=== PATIENT | male | born 1970 | race African-American/Black ===

== ENCOUNTER 2017-06-24 12:29 | Inpatient (IN) | payer OTHER ==
[2017-06-24 13:48] VITALS: BMI 35.2
[2017-06-24] MEDS ORDERED: IBUPROFEN 400 MG TABLET (FP) PO PRN (17:54)
[2017-06-24] MEDS ORDERED: NICOTINE POLACRILEX 2 MG GUM BC PRN (17:54)
[2017-06-24] MEDS ORDERED: MENTHOL/PHENOL 1 EACH UD MM PRN (17:54)
[2017-06-24] MEDS ORDERED: P-EPHED 60MG/TRIPROLIDI 2.5MG TABLET PO PRN (17:54)
[2017-06-24] MEDS ORDERED: chlordiazePOXIDE HCL 25 MG CAPSULE PO PRN (17:54)
[2017-06-24] MEDS ORDERED: hydrOXYzine PAMOATE 50 MG CAPSULE (FP) PO PRN (17:54)
[2017-06-24] MEDS ORDERED: MAG HYDROX/AL HYDROX/SIMETH 30 ML UNIT-DOSE CUP PO PRN (17:54)
[2017-06-24] MEDS ORDERED: MAGNESIUM HYDROX 2400MG/30ML ORAL SUSPENSION 30 ML CUP PO PRN (17:54)
[2017-06-24] MEDS ORDERED: LOPERAMIDE HCL 2 MG CAPSULE PO PRN (17:54)
[2017-06-24] MEDS ORDERED: guaiFENesin/D-METHORPHAN HB 10 ML UNIT-DOSE CUPS PO PRN (17:54)
[2017-06-24] MEDS ORDERED: MAGNESIUM CITRATE 300 ML BOTTLE PO PRN (17:54)
[2017-06-24] MEDS ORDERED: ACETAMINOPHEN 325 MG TABLET (FP) PO PRN (17:54)
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
[2017-06-24] MEDS ORDERED: chlordiazePOXIDE HCL 25 MG CAPSULE PO ONE (19:45)
[2017-06-24] MEDS: NICOTINE 14 MG/24 HOURS TOPICAL PATCH TD SCH (20:05)
[2017-06-24] MEDS: THIAMINE HCL 100 MG TABLET (FP) PO SCH (23:04)
[2017-06-24] MEDS: chlordiazePOXIDE HCL 25 MG CAPSULE PO SCH (23:05)
[2017-06-25] MEDS: chlordiazePOXIDE HCL 25 MG CAPSULE PO SCH ×4 (06:04→22:25)
[2017-06-25 09:58] LABS: MCHC 32.7 g/dl (32.0-35.9); MEAN CELL VOLUME 91.8 fl (80-96); MEAN PLT VOLUME 8.1 fl (7.5-11.1); PLATELET COUNT 255 K/MM3 (134-434); RDW 14.7 % (11.9-15.9); WHITE BLOOD COUNT 8.9 K/mm3 (4.0-10.0)
[2017-06-25 10:17] LABS: ALK PHOS 75 U/L (45-117); ANION GAP 7 (8-16); BILIRUBIN,TOTAL 0.2 mg/dL (0.2-1.0); CALCIUM 8.1 mg/dL (8.5-10.1); CO2 27 mmol/L (21-32); CREATININE 1.2 mg/dL (0.7-1.3); GLUCOSE,RANDOM 82 mg/dL (74-106); SGOT/AST 14 U/L (15-37); SGPT/ALT 34 U/L (12-78); TOT PROT 6.4 g/dl (6.4-8.2)
[2017-06-25] MEDS: NICOTINE 14 MG/24 HOURS TOPICAL PATCH TD SCH (10:42)
[2017-06-25] MEDS: PRENATAL VITAMINS W/ FOLIC ACID TABLET (FP) PO SCH (10:42)
[2017-06-25 12:46] LABS: HIV 1 & 2 AB NEGATIVE; HIV 1 AGp24 NEGATIVE
--- NOTE | 2017-06-25 12:56 | PN ---
[facility] CIWA - CIWA Score Nausea/Vomitin-No Nausea/No Vomiting Muscle Tremors: 3 Anxiety: 3 Agitation: 1-Slight > Activity Paroxysmal Sweats: 3 Orientation: 0-Oriented Tacttile Disturbances: 2-Mild Itch/Numbness/Burn Auditory Disturbances: 2-Mild Harshness/Frighten Visual Disturbances: 2-Mild Sensitivity Headache: 0-None Present CIWA-Ar Total Score: 16 S Progress Note (SOAP) Subjective: Fatigue, Tremors, Sweating, Anxious. Objective: PT. A & O X 3, OBSERVED AMBULATING ON UNIT. NO ACUTE DISTRESS. 06/25/17 12:54 Vital Signs Temperature 97.7 F 06/25/17 09:19 Pulse Rate 78 06/25/17 09:19 Respiratory Rate 18 06/25/17 09:19 Blood Pressure 122/78 06/25/17 09:19 O2 Sat by Pulse Oximetry (%) Laboratory Tests 06/25/17 06/25/17 06/25/17 07:00 07:00 07:00 WBC 8.9 RBC 4.64 Hgb 13.9 Hct 42.6 MCV 91.8 MCH 30.0 MCHC 32.7 RDW 14.7 Plt Count 255 D MPV 8.1 Sodium 142 Potassium 4.2 Chloride 108 H Carbon Dioxide 27 Anion Gap 7 L BUN 20 H D Creatinine 1.2 D Creat Clearance w eGFR > 60 Random Glucose 82 Calcium 8.1 L Total Bilirubin 0.2 D AST 14 L D ALT 34 Alkaline Phosphatase 75 D Total Protein 6.4 Albumin 3.0 L D HIV 1&2 Antibody Screen Negative HIV P24 Antigen Negative LABS NOTED. RPR, UA RESULTS PENDING. 06/25/17 12:56 Assessment: 06/25/17 12:55 WITHDRAWAL SYMPTOMS. Plan: CONTINUE DETOX.
--- NOTE | 2017-06-25 13:00 | CONSULT ---
[facility] Psychiatric Consult - Data Date of interview: 06/25/17 Admission source: [facility] Identifying data: Readmission to [facility] for this 46 y/o AA male seeking detox treatment on for alcohol,cocaine (crack) and phencyclidine dependence.Patient is single,a father of three,homeless,unemployed and supported on SSI benefits. Substance Abuse History: Confirmed by patient in this session.See current [facility] report for details : Smoking history: Current every day smoker. Have you smoked in the past 12 months: Yes. Aproximately how many cigarettes per day: 4. Hx Chewing Tobacco Use: No. Initiated information on smoking cessation: Yes. 'Breaking Loose' booklet given: 06/24/17. - Substance & Tx. History. Hx Alcohol Use: Yes. Hx Substance Use: Yes. Substance Use Type: Alcohol, Cocaine. Hx Substance Use Treatment: Yes ([facility] in past). - Substances Abused. Alcohol. Route: Oral. Frequency: Daily. Amount used: 6 24 oz beers. Age of first use: 14. Date of Last Use: 06/23/17. Crack. Route: Smoking. Frequency: Daily. Amount used: $150. Age of first use: 17. Date of Last Use: 06/23/17. PCP. Route: Smoking. Frequency: 1-3 times last 30 days. Amount used: 1 joint. Age of first use: 46. Date of Last Use: 06/23/17 Medical History: Patient endorses good general health. Psychiatric History: Diagnosed with Schizoaffective Disorder.Prescribed zyprexa 10 mg/hs + zoloft 100 mg/day + vistaril 50 mg prn.Last taken two days ago (self- report).Mr Smith admits to a history of multiple psychiatric hospializaions ([facility]).He gets his OPD services at [facility] mental health clinic.Patient denies history of suicide attempts. Physical/Sexual Abuse/Trauma History: No reported history of abuse. Additional Comment: Urine Drug Screen Results: DAWN-Cocaine, PCP- Phencyclidine.Noted. Mental Status Exam - Mental Status Exam Alert and Oriented to: Time, Place, Person Cognitive Function: Good Patient Appearance: Well Groomed (obese) Mood: Hopeful, Euthymic Affect: Appropriate, Normal Range Patient Behavior: Appropriate, Cooperative Speech Pattern: Clear, Appropriate Voice Loudness: Normal Thought Process: Goal Oriented Thought Disorder: Not Present Hallucinations: Denies Suicidal Ideation: Denies Homicidal Ideation: Denies Insight/Judgement: Poor Sleep: Well Appetite: Good Muscle strength/Tone: Normal Gait/Station: Normal Psychiatric Findings - Problem List ([place] 1, 2,3) (1) Alcohol dependence with uncomplicated withdrawal Current Visit: Yes Status: Acute (2) Cocaine dependence Current Visit: Yes Status: Active (3) Phencyclidine dependence Current Visit: Yes Status: Acute (4) Schizoaffective disorder Current Visit: Yes Status: Chronic - Initial Treatment Plan Initial Treatment Plan: Psychoeducation.Detoxification in progress.Medications : zyprexa 10 mg po hs + oloft 100 mg po daily.Side effects/benefits of both drugs are discussed with the patient.He agrees to resume these medications in this hospital course.Observation.
[2017-06-25 13:29] LABS: URINE APPEARANCE SLCLOUDY; URINE BILIRUBIN NEGATIVE (NEGATIVE); URINE BLOOD NEGATIVE (NEGATIVE); URINE COLOR YELLOW; URINE GLUCOSE (UA) NEGATIVE (NEGATIVE); URINE KETONE NEGATIVE (NEGATIVE); URINE NITRITE NEGATIVE (NEGATIVE); URINE PROTEIN NEGATIVE (NEGATIVE); URINE UROBILINOGEN NEGATIVE mg/dL (0.2-1.0)
[2017-06-25 13:31] LABS: URINE LEUK ESTERASE 2+ (NEGATIVE)
[2017-06-25 13:35] LABS: URINE HYALINE CAST 4 /lpf; URINE MUCUS RARE; URINE RBC 1 /hpf (0-3); URINE WBC 13 /hpf (3-5)
--- NOTE | 2017-06-25 14:30 | EKG ---
Test Reason : Blood Pressure : / mmHG Vent. Rate : 069 BPM Atrial Rate : 069 BPM P-R Int : 154 ms QRS Dur : 086 ms QT Int : 402 ms P-R-T Axes : 073 070 052 degrees QTc Int : 430 ms NORMAL SINUS RHYTHM POSSIBLE LEFT ATRIAL ENLARGEMENT BORDERLINE ECG NO PREVIOUS ECGS AVAILABLE Confirmed by HALLIE IGLESIAS MD ([id number]) on 06/25/2017 2:30:26 PM Referred By: Confirmed By:HALLIE IGLESIAS MD
[2017-06-25 22:01] LABS: URINE LEUK ESTERASE TRACE (NEGATIVE)
[2017-06-25] MEDS: OLANZapine 10 MG TABLET PO SCH (22:25)
[2017-06-25] MEDS: THIAMINE HCL 100 MG TABLET (FP) PO SCH (22:25)
[2017-06-26] MEDS: chlordiazePOXIDE HCL 25 MG CAPSULE PO SCH ×3 (06:06→17:28)
[2017-06-26] MEDS: NICOTINE 14 MG/24 HOURS TOPICAL PATCH TD SCH (10:51)
[2017-06-26] MEDS: SERTRALINE HCL 50 MG TABLET (FP) PO SCH (10:51)
[2017-06-26] MEDS: PRENATAL VITAMINS W/ FOLIC ACID TABLET (FP) PO SCH (10:51)
--- NOTE | 2017-06-26 12:59 | PN ---
[facility] CIWA - CIWA Score Nausea/Vomitin-No Nausea/No Vomiting Muscle Tremors: 3 Anxiety: 4-Mod. Anxious/Guarded Agitation: 3 Paroxysmal Sweats: 3 Orientation: 0-Oriented Tacttile Disturbances: 2-Mild Itch/Numbness/Burn Auditory Disturbances: 1-Very Mild Visual Disturbances: 1-Very Mild Sensitivity Headache: 0-None Present CIWA-Ar Total Score: 17 S Progress Note (SOAP) Subjective: Anxious, Fatigue, Sweating. Objective: PT. A & O X 3, OBSERVED AMBULATING ON UNIT. NO ACUTE DISTRESS. 06/26/17 12:55 Vital Signs Temperature 97.7 F 06/26/17 09:54 Pulse Rate 75 06/26/17 09:54 Respiratory Rate 18 06/26/17 09:54 Blood Pressure 133/69 06/26/17 09:54 O2 Sat by Pulse Oximetry (%) Laboratory Tests 06/24/17 06/25/17 06/25/17 11:46 07:00 07:00 WBC 8.9 RBC 4.64 Hgb 13.9 Hct 42.6 MCV 91.8 MCH 30.0 MCHC 32.7 RDW 14.7 Plt Count 255 D MPV 8.1 Sodium Potassium Chloride Carbon Dioxide Anion Gap BUN Creatinine Creat Clearance w eGFR Random Glucose Calcium Total Bilirubin AST ALT Alkaline Phosphatase Total Protein Albumin Urine Color Yellow Urine Appearance Slcloudy Urine pH 5.0 Ur Specific [place] 1.024 Urine Protein Negative Urine Glucose (UA) Negative Urine Ketones Negative Urine Blood Negative Urine Nitrite Negative Urine Bilirubin Negative Urine Urobilinogen Negative Ur Leukocyte Esterase Trace H Urine WBC (Auto) 13 Urine RBC (Auto) 1 Ur Epithelial Cells Rare Hyaline Casts 4 Urine Mucus Rare RPR Titer HIV 1&2 Antibody Screen Negative HIV P24 Antigen Negative 06/25/17 06/25/17 07:00 07:00 WBC RBC Hgb Hct MCV MCH MCHC RDW Plt Count MPV Sodium 142 Potassium 4.2 Chloride 108 H Carbon Dioxide 27 Anion Gap 7 L BUN 20 H D Creatinine 1.2 D Creat Clearance w eGFR > 60 Random Glucose 82 Calcium 8.1 L Total Bilirubin 0.2 D AST 14 L D ALT 34 Alkaline Phosphatase 75 D Total Protein 6.4 Albumin 3.0 L D Urine Color Urine Appearance Urine pH Ur Specific [place] Urine Protein Urine Glucose (UA) Urine Ketones Urine Blood Urine Nitrite Urine Bilirubin Urine Urobilinogen Ur Leukocyte Esterase Urine WBC (Auto) Urine RBC (Auto) Ur Epithelial Cells Hyaline Casts Urine Mucus RPR Titer Nonreactive HIV 1&2 Antibody Screen HIV P24 Antigen LABS NOTED. Assessment: 06/26/17 12:56 WITHDRAWAL SYMPTOMS. Plan: CONTINUE DETOX. REPEAT UA FOR ADMISSION ABNORMALITIES. INCREASE DAILY PO FLUID INTAKE.
[2017-06-26] MEDS: THIAMINE HCL 100 MG TABLET (FP) PO SCH (22:29)
[2017-06-26] MEDS: chlordiazePOXIDE 5 MG CAPSULE PO SCH (22:29)
[2017-06-26] MEDS: OLANZapine 10 MG TABLET PO SCH (22:29)
[2017-06-27] MEDS: chlordiazePOXIDE 5 MG CAPSULE PO SCH ×3 (06:22→17:28)
[2017-06-27] MEDS: SERTRALINE HCL 50 MG TABLET (FP) PO SCH (09:38)
[2017-06-27] MEDS: NICOTINE 14 MG/24 HOURS TOPICAL PATCH TD SCH (09:38)
[2017-06-27] MEDS: PRENATAL VITAMINS W/ FOLIC ACID TABLET (FP) PO SCH (09:38)
[2017-06-27] MEDS ORDERED: COLLOIDAL OATMEAL 1 BAR EACH TP PRN (12:28)
--- NOTE | 2017-06-27 12:33 | PN ---
BHS Progress Note (SOAP) Subjective: Anxious, Sweating. Objective: PT. A & O X 3, OBSERVED AMBULATING ON UNIT. NO ACUTE DISTRESS. 06/27/17 12:30 Vital Signs Temperature 97.2 F L 06/27/17 09:44 Pulse Rate 71 06/27/17 09:44 Respiratory Rate 18 06/27/17 09:44 Blood Pressure 132/74 06/27/17 09:44 O2 Sat by Pulse Oximetry (%) Laboratory Tests 06/24/17 06/25/17 06/25/17 11:46 07:00 07:00 WBC 8.9 RBC 4.64 Hgb 13.9 Hct 42.6 MCV 91.8 MCH 30.0 MCHC 32.7 RDW 14.7 Plt Count 255 D MPV 8.1 Sodium Potassium Chloride Carbon Dioxide Anion Gap BUN Creatinine Creat Clearance w eGFR Random Glucose Calcium Total Bilirubin AST ALT Alkaline Phosphatase Total Protein Albumin Urine Color Yellow Urine Appearance Slcloudy Urine pH 5.0 Ur Specific [place] 1.024 Urine Protein Negative Urine Glucose (UA) Negative Urine Ketones Negative Urine Blood Negative Urine Nitrite Negative Urine Bilirubin Negative Urine Urobilinogen Negative Ur Leukocyte Esterase Trace H Urine WBC (Auto) 13 Urine RBC (Auto) 1 Ur Epithelial Cells Rare Hyaline Casts 4 Urine Mucus Rare RPR Titer HIV 1&2 Antibody Screen Negative HIV P24 Antigen Negative 06/25/17 06/25/17 07:00 07:00 WBC RBC Hgb Hct MCV MCH MCHC RDW Plt Count MPV Sodium 142 Potassium 4.2 Chloride 108 H Carbon Dioxide 27 Anion Gap 7 L BUN 20 H D Creatinine 1.2 D Creat Clearance w eGFR > 60 Random Glucose 82 Calcium 8.1 L Total Bilirubin 0.2 D AST 14 L D ALT 34 Alkaline Phosphatase 75 D Total Protein 6.4 Albumin 3.0 L D Urine Color Urine Appearance Urine pH Ur Specific [place] Urine Protein Urine Glucose (UA) Urine Ketones Urine Blood Urine Nitrite Urine Bilirubin Urine Urobilinogen Ur Leukocyte Esterase Urine WBC (Auto) Urine RBC (Auto) Ur Epithelial Cells Hyaline Casts Urine Mucus RPR Titer Nonreactive HIV 1&2 Antibody Screen HIV P24 Antigen LABS NOTED. Assessment: 06/27/17 12:32 WITHDRAWAL SYMPTOMS. Plan: CONTINUE DETOX.
[2017-06-27 17:40] VITALS: BP 119/76; PULSE 81; TEMP 97.4
--- NOTE | 2017-06-27 22:02 | DS ---
[facility] Detox Discharge Summary Admission Date: 06/24/17 Discharge Date: 06/27/17 - History Present History: Alcohol Dependence Additional Comments: 46 years old male came for alcohol pcp cocaine detox received nurse call patient insists to leave the facility refuses to wait face to face with the provider patient left the unit Pertinent Past History: schizophrenia - Physical Exam Results Vital Signs: Vital Signs Temperature 97.4 F L 06/27/17 17:39 Pulse Rate 81 06/27/17 17:39 Respiratory Rate 18 06/27/17 17:39 Blood Pressure 119/76 06/27/17 17:39 O2 Sat by Pulse Oximetry (%) Pertinent Admission Physical Exam Findings: withdrawal sx Laboratory Last Values WBC 8.9 K/mm3 (4.0-10.0) 06/25/17 07:00 RBC 4.64 M/mm3 (4.00-5.60) 06/25/17 07:00 Hgb 13.9 GM/dL (11.7-16.9) 06/25/17 07:00 Hct 42.6 % (35.4-49) 06/25/17 07:00 MCV 91.8 fl (80-96) 06/25/17 07:00 MCH 30.0 pg (25.7-33.7) 06/25/17 07:00 MCHC 32.7 g/dl (32.0-35.9) 06/25/17 07:00 RDW 14.7 % (11.9-15.9) 06/25/17 07:00 Plt Count 255 K/MM3 (134-434) D 06/25/17 07:00 MPV 8.1 fl (7.5-11.1) 06/25/17 07:00 Sodium 142 mmol/L (136-145) 06/25/17 07:00 Potassium 4.2 mmol/L (3.5-5.1) 06/25/17 07:00 Chloride 108 mmol/L (98-107) H 06/25/17 07:00 Carbon Dioxide 27 mmol/L (21-32) 06/25/17 07:00 Anion Gap 7 (8-16) L 06/25/17 07:00 BUN 20 mg/dL (7-18) H D 06/25/17 07:00 Creatinine 1.2 mg/dL (0.7-1.3) D 06/25/17 07:00 Creat Clearance w eGFR > 60 (>60) 06/25/17 07:00 Random Glucose 82 mg/dL (74-106) 06/25/17 07:00 Calcium 8.1 mg/dL (8.5-10.1) L 06/25/17 07:00 Total Bilirubin 0.2 mg/dL (0.2-1.0) D 06/25/17 07:00 AST 14 U/L (15-37) L D 06/25/17 07:00 ALT 34 U/L (12-78) 06/25/17 07:00 Alkaline Phosphatase 75 U/L (45-117) D 06/25/17 07:00 Total Protein 6.4 g/dl (6.4-8.2) 06/25/17 07:00 Albumin 3.0 g/dl (3.4-5.0) L D 06/25/17 07:00 Urine Color Yellow 06/24/17 11:46 Urine Appearance Slcloudy 06/24/17 11:46 Urine pH 5.0 (5.0-8.0) 06/24/17 11:46 Ur Specific [place] 1.024 (1.001-1.035) 06/24/17 11:46 Urine Protein Negative (NEGATIVE) 06/24/17 11:46 Urine Glucose (UA) Negative (NEGATIVE) 06/24/17 11:46 Urine Ketones Negative (NEGATIVE) 06/24/17 11:46 Urine Blood Negative (NEGATIVE) 06/24/17 11:46 Urine Nitrite Negative (NEGATIVE) 06/24/17 11:46 Urine Bilirubin Negative (NEGATIVE) 06/24/17 11:46 Urine Urobilinogen Negative mg/dL (0.2-1.0) 06/24/17 11:46 Ur Leukocyte Esterase Trace (NEGATIVE) H 06/24/17 11:46 Urine WBC (Auto) 13 /hpf (3-5) 06/24/17 11:46 Urine RBC (Auto) 1 /hpf (0-3) 06/24/17 11:46 Ur Epithelial Cells Rare /HPF (FEW) 06/24/17 11:46 Hyaline Casts 4 /lpf 06/24/17 11:46 Urine Mucus Rare 06/24/17 11:46 RPR Titer Nonreactive (NONREACTIVE) 06/25/17 07:00 HIV 1&2 Antibody Screen Negative 06/25/17 07:00 HIV P24 Antigen Negative 06/25/17 07:00 lab noted - Treatment Hospital Course: Detox Protocol Followed, Responded well - Medication Discharge Medications: Ambulatory Orders Olanzapine [ZyPREXA] 10 mg PO HS 10/16/12 Hydroxyzine Pamoate [Vistaril -] 50 mg PO HS 06/24/17 Sertraline HCl [Zoloft -] 100 mg PO HS 06/24/17 Olanzapine [Zyprexa -] 10 mg PO DAILY #30 tablet 06/25/17 Sertraline HCl [Zoloft] 100 mg PO DAILY #30 tablet 06/25/17 - Diagnosis (1) Alcohol dependence with uncomplicated withdrawal Status: Acute (2) Schizoaffective disorder Status: Suspected Qualifiers: Schizoaffective disorder type: other Qualified Code(s): F25.8 - Other schizoaffective disorders - AMA Did Patient Leave Against Medical Advice: Yes
[2017-06-27] MEDS ORDERED: chlordiazePOXIDE HCL 10 MG CAPSULE PO SCH (23:00)
== END 2017-06-27 18:55 | disposition left against medical advice (07) | DRG 770 ==
LOC: YASAS 12:29 → Y3N 19:02
PROVIDERS: ADMIT Internal Medicine; ATTEND Internal Medicine
PROC: HZ2ZZZZ Detoxification Services for Substance Abuse Treatment (ICD-10-PCS; principal; 2017-06-24)
DX: F10.230 Alcohol dependence with withdrawal, uncomplicated (principal); F14.20 Cocaine dependence, uncomplicated; F16.20 Hallucinogen dependence, uncomplicated; F17.210 Nicotine dependence, cigarettes, uncomplicated; F31.9 Bipolar disorder, unspecified; F25.8 Other schizoaffective disorders; E86.0 Dehydration
CPT/HCPCS: 36415; 80053; 81003; 81015; 85027; 86593; 87389; 93005; 93010

== ENCOUNTER 2018-01-08 16:01 | Emergency (ER) | payer OTHER ==
[2018-01-08] MEDS ORDERED: TETANUS AND DIPHTHERIA TOXOID 0.5 ML DISP.SYRIN IM ONE (16:06)
--- NOTE | 2018-01-08 16:07 | PDOC ---
Rapid Medical Evaluation Time Seen by Provider: 01/08/18 16:04 Medical Evaluation: Allergies Allergy/AdvReac Type Severity Reaction Status Date / Time No Known Drug Allergies Allergy Unknown Verified 10/17/12 09:02 I have performed a brief in-person evaluation of this patient. The patient presents with a chief complaint of: laceration right arm. Patient cut himself on broken porcelin toilet. patient does not remember tetanus status Pertinent physical exam findings: 3cm laceration to right forearm. I have ordered the following: tetanus The patient will proceed to the ED for further evaluation. Discharge Disposition - Diagnosis Laceration - Referrals - Patient Instructions - Post Discharge Activity
[2018-01-08 16:12] VITALS: BP 147/86; PULSE 85; TEMP 98.8; BMI 34.7
[2018-01-08] MEDS ORDERED: DIPHTH,PERTUSS(ACELL),TET 0.5 ML DISP.SYRIN IM ONE (16:28)
--- NOTE | 2018-01-08 16:38 | PDOC ---
History of Present Illness - General Chief Complaint: Wound Stated Complaint: WOUND Time Seen by Provider: 01/08/18 16:04 History Source: Patient Exam Limitations: No Limitations - History of Present Illness Initial Comments: 01/08/18 16:33 laceration to right forearm on piece of broken porcelin toilet at work 30 mins ago. unknown tetanus Past History - Past Medical History Allergies/Adverse Reactions: Allergies Allergy/AdvReac Type Severity Reaction Status Date / Time No Known Drug Allergies Allergy Unknown Verified 01/08/18 16:06 Home Medications: Ambulatory Orders Olanzapine [ZyPREXA] 10 mg PO HS 10/16/12 Sertraline HCl [Zoloft -] 100 mg PO HS 06/24/17 Olanzapine [Zyprexa -] 10 mg PO DAILY #30 tablet 12/26/17 Sertraline HCl [Zoloft] 100 mg PO DAILY #30 tablet 12/26/17 hydrOXYzine PAMOATE [Vistaril -] 50 mg PO HS #30 capsule 12/26/17 Anemia: No Asthma: No Cancer: No Cardiac Disorders: No CVA: No COPD: No CHF: No Dementia: No Diabetes: No GI Disorders: No Disorders: No HTN: No Hypercholesterolemia: No Kidney Stones: No Liver Disease: No Seizures: No Thyroid Disease: No - Surgical History Abdominal Surgery: No Appendectomy: No Cardiac Surgery: No Cholecystectomy: No Lung Surgery: No Neurologic Surgery: No Orthopedic Surgery: No - Reproductive History Testicular Surgery: No - Immunization History Immunization Up to Date: Yes - Suicide/Smoking/Psychosocial Hx Smoking History: Current every day smoker Have you smoked in the past 12 months: Yes Number of Cigarettes Smoked Daily: 4 Information on smoking cessation initiated: No 'Breaking Loose' booklet given: 06/24/17 Hx Alcohol Use: No Drug/Substance Use Hx: No Substance Use Type: Alcohol, Cocaine Hx Substance Use Treatment: Yes ([facility] in past) Review of Systems - Review of Systems Able to Perform ROS?: Yes Is the patient limited Khmer proficient: No Integumentary: Yes: Symptoms Reported *Physical Exam - Vital Signs Last Vital Signs Temp Pulse Resp BP Pulse Ox 98.8 F 85 16 147/86 98 01/08/18 16:07 01/08/18 16:07 01/08/18 16:07 01/08/18 16:07 01/08/18 16:07 - Physical Exam General Appearance: Yes: Nourished, Appropriately Dressed HEENT: positive: EOMI, RYAN Integumentary: positive: Normal Color, Dry, Warm, Other (right forearm outer aspect with 3cm linear laceration no active bleeding subq tissue exposed, nv intact FROM of the arm neg numbness or tingling ) Procedures - Laceration/Wound Repair Right Medial Arm Wound Length: 2.6 to 5.0 cm Wound Explored: clean Wound's Depth, Shape: superficial, linear Irrigated w/ Saline: Yes Betadine Prep: Yes Anesthesia: 1% Lidocaine Amount of Anesthetic (ccs): 4 Wound Repaired With: Sutures Suture Size/Type: 4:0, nylon Number of Sutures: 6 Layer Closure: No Sterile Dressing Applied: Yes ED Treatment Course - Medications Given in the ED: ED Medications Discontinued Medications Generic Name Dose Route Start Last Admin Trade Name Freq PRN Reason Stop Dose Admin Diphtheria/Tetanus/Acell Pertussis 0.5 ml 01/08/18 16:28 01/08/18 16:28 Boostrix - IM 01/08/18 16:29 0.5 ml NOW ONE Administration Tetanus/Diphtheria Toxoids Adsorbed 0.5 ml 01/08/18 16:06 01/08/18 16:27 Decavac IM 01/08/18 16:07 Not Given .ONCE ONE Medical Decision Making - Medical Decision Making 01/08/18 16:35 cc: laceration to right arm repaired with sutures tetanus given strict follow up discussed *DC/Admit/Observation/Transfer Diagnosis at time of Disposition: Laceration - Discharge Dispostion Disposition: HOME Condition at time of disposition: Good - Referrals - Patient Instructions Printed Discharge Instructions: DI for Laceration Repair -- Simple Additional Instructions: return in 10 days for suture removal keep clean and dry keep covered with bandaid while at work and sleeping gently clean daily with a cotton ball soaked in warm water then dry well and apply a thin layer of bacitracin ointment - Post Discharge Activity Forms/Work/School Notes: Back to Work
== END 2018-01-08 16:46 | disposition home or self-care (01) ==
LOC: JERFT 16:01
PROC: 0HQDXZZ Repair Right Lower Arm Skin, External Approach (ICD-10-PCS; principal; 2018-01-08)
PROC: 3E0234Z Introduction of Serum, Toxoid and Vaccine into Muscle, Percutaneous Approach (ICD-10-PCS; 2018-01-08)
DX: S51.811A Laceration without foreign body of right forearm, initial encounter (principal); W26.8XXA Contact with other sharp object(s), not elsewhere classified, initial encounter; Y93.89 Activity, other specified; Y92.9 Unspecified place or not applicable; Y99.0 Civilian activity done for income or pay; F17.210 Nicotine dependence, cigarettes, uncomplicated
CPT/HCPCS: 90715; 99282-25

== ENCOUNTER 2020-06-18 18:10 | Inpatient (IN) | payer OTHER ==
[2020-06-18 21:33] VITALS: BMI 26.0
[2020-06-18] MEDS ORDERED: chlordiazePOXIDE HCL 25 MG CAPSULE PO PRN (23:36)
[2020-06-18] MEDS ORDERED: METHOCARBAMOL 500 MG TABLET PO PRN (23:37)
[2020-06-18] MEDS ORDERED: NICOTINE POLACRILEX 2 MG GUM BUC PRN (23:37)
[2020-06-18] MEDS ORDERED: IBUPROFEN 400 MG TABLET (FP) PO PRN (23:37)
[2020-06-18] MEDS ORDERED: MENTHOL/PHENOL 1 EACH UD MM PRN (23:37)
[2020-06-18] MEDS ORDERED: MAG HYDROX/AL HYDROX/SIMETH 30 ML UNIT-DOSE CUP PO PRN (23:37)
[2020-06-18] MEDS ORDERED: BISMUTH SUBSALICYLATE 524 MG/30 ML UD PO PRN (23:37)
[2020-06-18] MEDS ORDERED: ONDANSETRON *ODT* 4 MG TABLET SL PRN (23:37)
[2020-06-18] MEDS ORDERED: ACETAMINOPHEN 325 MG TABLET (FP) PO PRN ×2 (23:37)
[2020-06-18] MEDS ORDERED: MAGNESIUM CITRATE 300 ML BOTTLE PO PRN (23:37)
[2020-06-18] MEDS ORDERED: MAGNESIUM HYDROX 2400MG/30ML ORAL SUSPENSION 30 ML CUP PO PRN (23:37)
[2020-06-18] MEDS ORDERED: MELATONIN 5 MG TABLETS PO PRN (23:40)
[2020-06-19] MEDS: chlordiazePOXIDE HCL 25 MG CAPSULE PO SCH ×5 (00:54→22:42)
[2020-06-19] MEDS: NICOTINE 7 MG/24 HOURS TOPICAL PATCH TD SCH (10:09)
[2020-06-19] MEDS: PRENATAL VITAMINS W/ FOLIC ACID TABLET (FP) PO SCH (10:09)
[2020-06-19 11:18] LABS: HEMATOCRIT 38.7 % (35.4-49); HEMOGLOBIN 12.8 GM/dL (11.7-16.9); MCH 31.3 pg (25.7-33.7); MCHC 32.9 g/dl (32.0-35.9); MEAN PLT VOLUME 7.3 fl (7.5-11.1); PLATELET COUNT 274 K/MM3 (134-434); POTASSIUM 4.2 mmol/L (3.5-5.1); RBC 4.07 M/mm3 (4.00-5.60); RDW 13.4 % (11.9-15.9); WHITE BLOOD COUNT 7.3 K/mm3 (4.0-10.0)
[2020-06-19 11:27] LABS: ALBUMIN 3.1 g/dl (3.4-5.0); CALCIUM 8.4 mg/dL (8.5-10.1)
[2020-06-19 11:31] LABS: CREATININE 1.1 mg/dL (0.55-1.3)
[2020-06-19 11:32] LABS: BILIRUBIN,TOTAL 0.8 mg/dL (0.2-1); TOT PROT 6.1 g/dl (6.4-8.2)
[2020-06-19 12:13] LABS: HIV INTERPRETATION NEGATIVE (NEGATIVE)
[2020-06-19] MEDS: THIAMINE HCL 100 MG TABLET (FP) PO SCH (22:42)
[2020-06-19] MEDS: OLANZapine 10 MG TABLET PO SCH (22:42)
[2020-06-20] MEDS: chlordiazePOXIDE HCL 25 MG CAPSULE PO SCH ×4 (06:48→22:34)
[2020-06-20] MEDS: PRENATAL VITAMINS W/ FOLIC ACID TABLET (FP) PO SCH (10:22)
[2020-06-20] MEDS: NICOTINE 7 MG/24 HOURS TOPICAL PATCH TD SCH (10:23)
[2020-06-20] MEDS: OLANZapine 10 MG TABLET PO SCH (22:34)
[2020-06-20] MEDS: THIAMINE HCL 100 MG TABLET (FP) PO SCH (22:34)
[2020-06-21] MEDS ORDERED: chlordiazePOXIDE HCL 10 MG CAPSULE PO PRN
[2020-06-21] MEDS: chlordiazePOXIDE HCL 10 MG CAPSULE PO SCH ×4 (05:33→22:32)
[2020-06-21] MEDS ORDERED: cloNIDine HCL 0.1 MG TABLET PO PRN (09:32)
[2020-06-21] MEDS: PRENATAL VITAMINS W/ FOLIC ACID TABLET (FP) PO SCH (10:34)
[2020-06-21] MEDS: NICOTINE 7 MG/24 HOURS TOPICAL PATCH TD SCH (10:41)
[2020-06-21] MEDS ORDERED: OLANZapine 5 MG TABLET PO SCH (22:00)
[2020-06-21] MEDS: THIAMINE HCL 100 MG TABLET (FP) PO SCH (22:32)
[2020-06-22] MEDS ORDERED: chlordiazePOXIDE HCL 10 MG CAPSULE PO SCH (05:00)
[2020-06-22] MEDS: NICOTINE 7 MG/24 HOURS TOPICAL PATCH TD SCH (09:28)
[2020-06-22] MEDS: PRENATAL VITAMINS W/ FOLIC ACID TABLET (FP) PO SCH (09:28)
[2020-06-22 10:26] VITALS: BP 134/80; PULSE 74; TEMP 97.1
[2020-06-23] MEDS ORDERED: chlordiazePOXIDE HCL 10 MG CAPSULE PO ONE (05:00)
== END 2020-06-22 09:46 | disposition home or self-care (01) | DRG 774 ==
LOC: YASAS 18:10 → Y3N 22:20
PROVIDERS: ADMIT Allergy & Immunology; ATTEND Allergy & Immunology
PROC: HZ2ZZZZ Detoxification Services for Substance Abuse Treatment (ICD-10-PCS; principal; 2020-06-18)
DX: F10.230 Alcohol dependence with withdrawal, uncomplicated (principal); F10.220 Alcohol dependence with intoxication, uncomplicated; F14.20 Cocaine dependence, uncomplicated; F12.10 Cannabis abuse, uncomplicated; F17.210 Nicotine dependence, cigarettes, uncomplicated; F19.24 Other psychoactive substance dependence with psychoactive substance-induced mood disorder; F25.9 Schizoaffective disorder, unspecified; E86.0 Dehydration; R01.1 Cardiac murmur, unspecified; H55.00 Unspecified nystagmus
CPT/HCPCS: 36415; 80053; 85027; 86780; 87389; 93005; 93010; C9803; U0003

== ENCOUNTER 2021-11-06 15:37 | Inpatient (IN) | payer OTHER ==
[2021-11-06 18:31] VITALS: BMI 24.1
[2021-11-06] MEDS ORDERED: LOPERAMIDE HCL 2 MG CAPSULE PO PRN (19:18)
[2021-11-06] MEDS ORDERED: P-EPHED 60MG/TRIPROLIDI 2.5MG TABLET PO PRN (19:18)
[2021-11-06] MEDS ORDERED: NICOTINE 10 MG CARTRIDGE (INHALER) IH PRN (19:18)
[2021-11-06] MEDS ORDERED: MAG HYDROX/AL HYDROX/SIMETH 30 ML UNIT-DOSE CUP PO PRN (19:18)
[2021-11-06] MEDS ORDERED: BISMUTH SUBSALICYLATE 524 MG/30 ML PO PRN (19:18)
[2021-11-06] MEDS ORDERED: BENZOCAINE/MENTHOL (CHLORASEPTIC ) LOZENGE MM PRN (19:18)
[2021-11-06] MEDS ORDERED: ACETAMINOPHEN 325 MG TABLET (FP) PO PRN ×2 (19:18)
[2021-11-06] MEDS ORDERED: IBUPROFEN 400 MG TABLET (FP) PO PRN (19:18)
[2021-11-06] MEDS ORDERED: DICYCLOMINE HCL 10 MG CAPSULE PO PRN (19:18)
[2021-11-06] MEDS ORDERED: MAGNESIUM CITRATE 300 ML BOTTLE PO PRN (19:18)
[2021-11-06] MEDS ORDERED: ONDANSETRON *ODT* 4 MG TABLET SL PRN (19:18)
[2021-11-06] MEDS ORDERED: NICOTINE POLACRILEX 2 MG GUM BUC PRN (19:18)
[2021-11-06] MEDS ORDERED: METHOCARBAMOL 500 MG TABLET PO PRN (19:18)
[2021-11-06] MEDS ORDERED: MAGNESIUM HYDROX 2400MG/30ML ORAL SUSPENSION 30 ML CUP PO PRN (19:18)
[2021-11-06] MEDS: THIAMINE HCL 100 MG TABLET (FP) PO SCH (23:49)
[2021-11-06] MEDS: MELATONIN 5 MG TABLETS PO SCH (23:49)
[2021-11-06] MEDS: hydrOXYzine PAMOATE 25 MG CAPSULE (FP) PO SCH (23:49)
[2021-11-07] MEDS: hydrOXYzine PAMOATE 25 MG CAPSULE (FP) PO SCH ×5 (05:09→23:06)
[2021-11-07] MEDS: PRENATAL VITAMINS W/ FOLIC ACID TABLET (FP) PO SCH (10:35)
[2021-11-07 12:40] LABS: HEMATOCRIT 39.4 % (35.4-49); MCH 31.3 pg (25.7-33.7); MCHC 33.1 g/dl (32.0-35.9); MEAN CELL VOLUME 94.6 fl (80-96); MEAN PLT VOLUME 8.4 fl (7.5-11.1); PLATELET COUNT 292 10^3/uL (134-434); RBC 4.16 M/mm3 (4.00-5.60); RDW 14.4 % (11.9-15.9); WHITE BLOOD COUNT 5.5 K/mm3 (4.0-10.0)
[2021-11-07 13:01] LABS: CALCIUM 8.6 mg/dL (8.5-10.1)
[2021-11-07 13:02] LABS: ALBUMIN 2.9 g/dl (3.4-5.0); BLOOD UREA NITROGEN 17.2 mg/dL (7-18)
[2021-11-07 13:05] LABS: CREATININE 0.9 mg/dL (0.55-1.3)
[2021-11-07 13:06] LABS: BILIRUBIN,TOTAL 0.3 mg/dL (0.2-1)
[2021-11-07 13:07] LABS: TOT PROT 5.8 g/dl (6.4-8.2)
[2021-11-07] MEDS: SERTRALINE HCL 50 MG TABLET (FP) PO SCH (14:37)
[2021-11-07] MEDS ORDERED: OLANZapine 10 MG TABLET PO SCH (22:00)
[2021-11-07] MEDS: THIAMINE HCL 100 MG TABLET (FP) PO SCH (23:06)
[2021-11-07] MEDS: MELATONIN 5 MG TABLETS PO SCH (23:06)
[2021-11-08] MEDS: hydrOXYzine PAMOATE 25 MG CAPSULE (FP) PO SCH ×2 (06:24→11:14)
[2021-11-08 09:43] VITALS: BP 140/69; PULSE 66; TEMP 97.5
[2021-11-08] MEDS: SERTRALINE HCL 50 MG TABLET (FP) PO SCH (11:14)
[2021-11-08] MEDS: PRENATAL VITAMINS W/ FOLIC ACID TABLET (FP) PO SCH (11:14)
[2021-11-08 12:08] LABS: SARS-CoV-2 NAA Not Detected (Not Detected)
== END 2021-11-08 10:25 | disposition home or self-care (01) | DRG 774 ==
LOC: YASAS 15:37 → Y6N 22:02
PROVIDERS: ADMIT Allergy & Immunology; ATTEND Allergy & Immunology
PROC: HZ2ZZZZ Detoxification Services for Substance Abuse Treatment (ICD-10-PCS; principal; 2021-11-06)
DX: F10.230 Alcohol dependence with withdrawal, uncomplicated (principal); F14.20 Cocaine dependence, uncomplicated; F12.20 Cannabis dependence, uncomplicated; F16.20 Hallucinogen dependence, uncomplicated; F17.210 Nicotine dependence, cigarettes, uncomplicated; F25.1 Schizoaffective disorder, depressive type; F19.282 Other psychoactive substance dependence with psychoactive substance-induced sleep disorder; H55.00 Unspecified nystagmus; R01.1 Cardiac murmur, unspecified; Z28.310 Unvaccinated for COVID-19; Z56.0 Unemployment, unspecified
CPT/HCPCS: 36415; 80053; 85027; 86780; C9803-CS; U0003; U0005

== ENCOUNTER 2021-11-26 12:30 | Inpatient (IN) | payer OTHER ==
[2021-11-26] MEDS ORDERED: LOPERAMIDE HCL 2 MG CAPSULE PO PRN (14:27)
[2021-11-26] MEDS ORDERED: BENZOCAINE/MENTHOL (CHLORASEPTIC ) LOZENGE MM PRN (14:27)
[2021-11-26] MEDS ORDERED: NICOTINE POLACRILEX 2 MG GUM BUC PRN (14:27)
[2021-11-26] MEDS ORDERED: ONDANSETRON *ODT* 4 MG TABLET SL PRN (14:27)
[2021-11-26] MEDS ORDERED: BISMUTH SUBSALICYLATE 524 MG/30 ML PO PRN (14:27)
[2021-11-26] MEDS ORDERED: MAGNESIUM CITRATE 300 ML BOTTLE PO PRN (14:27)
[2021-11-26] MEDS ORDERED: IBUPROFEN 400 MG TABLET (FP) PO PRN (14:27)
[2021-11-26] MEDS ORDERED: MAG HYDROX/AL HYDROX/SIMETH 30 ML UNIT-DOSE CUP PO PRN (14:27)
[2021-11-26] MEDS ORDERED: ACETAMINOPHEN 325 MG TABLET (FP) PO PRN ×2 (14:27)
[2021-11-26] MEDS ORDERED: DICYCLOMINE HCL 10 MG CAPSULE PO PRN (14:27)
[2021-11-26] MEDS ORDERED: MAGNESIUM HYDROX 2400MG/30ML ORAL SUSPENSION 30 ML CUP PO PRN (14:27)
[2021-11-26 15:33] VITALS: BMI 23.0
[2021-11-26] MEDS: hydrOXYzine PAMOATE 25 MG CAPSULE (FP) PO PRN (17:28)
[2021-11-26] MEDS: MELATONIN 5 MG TABLETS PO PRN (22:22)
[2021-11-26] MEDS: THIAMINE HCL 100 MG TABLET (FP) PO SCH (22:22)
[2021-11-26] MEDS: METHOCARBAMOL 500 MG TABLET PO PRN (22:22)
[2021-11-27 09:47] LABS: HEMATOCRIT 40.4 % (35.4-49); HEMOGLOBIN 13.3 GM/dL (11.7-16.9); MCH 31.3 pg (25.7-33.7); MCHC 32.8 g/dl (32.0-35.9); MEAN CELL VOLUME 95.4 fl (80-96); MEAN PLT VOLUME 7.9 fl (7.5-11.1); PLATELET COUNT 276 10^3/uL (134-434); RBC 4.23 M/mm3 (4.00-5.60); RDW 14.5 % (11.9-15.9); WHITE BLOOD COUNT 5.9 K/mm3 (4.0-10.0)
[2021-11-27 09:58] LABS: CALCIUM 8.8 mg/dL (8.5-10.1)
[2021-11-27 10:00] LABS: BLOOD UREA NITROGEN 15.6 mg/dL (7-18)
[2021-11-27 10:02] LABS: CREATININE 0.9 mg/dL (0.55-1.3)
[2021-11-27 10:05] LABS: BILIRUBIN,TOTAL 0.2 mg/dL (0.2-1)
[2021-11-27] MEDS: PRENATAL VITAMINS W/ FOLIC ACID TABLET (FP) PO SCH (10:13)
[2021-11-27] MEDS ORDERED: SERTRALINE HCL 50 MG TABLET (FP) PO ONE (11:05)
[2021-11-27] MEDS ORDERED: diazePAM 5 MG TABLET PO PRN (11:55)
[2021-11-27] MEDS: diazePAM 5 MG TABLET PO SCH ×2 (17:12→22:37)
[2021-11-27] MEDS: OLANZapine 10 MG TABLET PO SCH (22:37)
[2021-11-27] MEDS: THIAMINE HCL 100 MG TABLET (FP) PO SCH (22:38)
[2021-11-28] MEDS: diazePAM 5 MG TABLET PO SCH ×4 (06:03→22:26)
[2021-11-28] MEDS: PRENATAL VITAMINS W/ FOLIC ACID TABLET (FP) PO SCH (10:06)
[2021-11-28] MEDS: SERTRALINE HCL 50 MG TABLET (FP) PO SCH (10:07)
[2021-11-28] MEDS: hydrOXYzine PAMOATE 25 MG CAPSULE (FP) PO PRN (10:07)
[2021-11-28] MEDS: METHOCARBAMOL 500 MG TABLET PO PRN (10:07)
[2021-11-28 14:09] LABS: SARS-CoV-2 NAA Not Detected (Not Detected)
[2021-11-28] MEDS: THIAMINE HCL 100 MG TABLET (FP) PO SCH (22:26)
[2021-11-28] MEDS: OLANZapine 10 MG TABLET PO SCH (22:27)
[2021-11-29] MEDS: diazePAM 5 MG TABLET PO SCH ×2 (05:46→13:38)
[2021-11-29] MEDS: hydrOXYzine PAMOATE 25 MG CAPSULE (FP) PO PRN (10:16)
[2021-11-29] MEDS: PRENATAL VITAMINS W/ FOLIC ACID TABLET (FP) PO SCH (10:16)
[2021-11-29] MEDS: METHOCARBAMOL 500 MG TABLET PO PRN (10:16)
[2021-11-29] MEDS: SERTRALINE HCL 50 MG TABLET (FP) PO SCH (10:16)
[2021-11-30] MEDS: diazePAM 5 MG TABLET PO SCH ×3 (00:01→17:39)
[2021-11-30] MEDS: THIAMINE HCL 100 MG TABLET (FP) PO SCH ×2 (00:01→22:12)
[2021-11-30] MEDS: OLANZapine 10 MG TABLET PO SCH ×2 (00:01→22:11)
[2021-11-30] MEDS: PRENATAL VITAMINS W/ FOLIC ACID TABLET (FP) PO SCH (10:56)
[2021-11-30] MEDS: METHOCARBAMOL 500 MG TABLET PO PRN (10:56)
[2021-11-30] MEDS: hydrOXYzine PAMOATE 25 MG CAPSULE (FP) PO PRN ×2 (10:56→22:12)
[2021-11-30] MEDS: SERTRALINE HCL 50 MG TABLET (FP) PO SCH (10:56)
[2021-11-30] MEDS: MELATONIN 5 MG TABLETS PO PRN (22:11)
[2021-12-01] MEDS ORDERED: diazePAM 5 MG TABLET PO ONE (06:00)
[2021-12-01] MEDS: PRENATAL VITAMINS W/ FOLIC ACID TABLET (FP) PO SCH (10:34)
[2021-12-01] MEDS: SERTRALINE HCL 50 MG TABLET (FP) PO SCH (10:35)
[2021-12-01 12:36] VITALS: BP 119/53; PULSE 70; TEMP 98.6
[2021-12-02 00:06] LABS: SARS-CoV-2 NAA Not Detected (Not Detected)
== END 2021-12-01 01:05 | disposition other institution (70) | DRG 774 ==
LOC: YASAS 12:30 → Y6N 14:41
PROVIDERS: ADMIT Allergy & Immunology; ATTEND Surgery
PROC: HZ2ZZZZ Detoxification Services for Substance Abuse Treatment (ICD-10-PCS; principal; 2021-11-26)
DX: F10.230 Alcohol dependence with withdrawal, uncomplicated (principal); F14.20 Cocaine dependence, uncomplicated; F12.20 Cannabis dependence, uncomplicated; F17.210 Nicotine dependence, cigarettes, uncomplicated; F25.1 Schizoaffective disorder, depressive type; F19.24 Other psychoactive substance dependence with psychoactive substance-induced mood disorder; F41.9 Anxiety disorder, unspecified; R01.1 Cardiac murmur, unspecified; Z28.310 Unvaccinated for COVID-19
CPT/HCPCS: 36415; 80053; 85027; 86780; C9803-CS; U0003; U0005

== ENCOUNTER 2021-12-01 13:40 | Inpatient (IN) | payer OTHER ==
[2021-12-01 13:52] VITALS: BMI 23.0
[2021-12-01] MEDS ORDERED: LOPERAMIDE HCL 2 MG CAPSULE PO PRN (14:00)
[2021-12-01] MEDS ORDERED: MAG HYDROX/AL HYDROX/SIMETH 30 ML UNIT-DOSE CUP PO PRN (14:00)
[2021-12-01] MEDS ORDERED: guaiFENesin 200 MG/10 ML 10 ML UNIT-DOSE CUPS PO PRN (14:00)
[2021-12-01] MEDS ORDERED: IBUPROFEN 400 MG TABLET (FP) PO PRN (14:00)
[2021-12-01] MEDS ORDERED: BENZOCAINE/MENTHOL (CHLORASEPTIC ) LOZENGE MM PRN (14:00)
[2021-12-01] MEDS ORDERED: ACETAMINOPHEN 325 MG TABLET (FP) PO PRN (14:00)
[2021-12-01] MEDS ORDERED: MAGNESIUM CITRATE 300 ML BOTTLE PO PRN (14:00)
[2021-12-01] MEDS ORDERED: MAGNESIUM HYDROX 2400MG/30ML ORAL SUSPENSION 30 ML CUP PO PRN (14:00)
[2021-12-01] MEDS ORDERED: NICOTINE POLACRILEX 2 MG GUM BUC PRN (14:00)
[2021-12-01] MEDS ORDERED: P-EPHED 60MG/TRIPROLIDI 2.5MG TABLET PO PRN (14:00)
[2021-12-01] MEDS ORDERED: hydrOXYzine PAMOATE 25 MG CAPSULE (FP) PO PRN (14:00)
[2021-12-01] MEDS: MELATONIN 5 MG TABLETS PO SCH (21:29)
[2021-12-01] MEDS: THIAMINE HCL 100 MG TABLET (FP) PO SCH (21:29)
[2021-12-01] MEDS: OLANZapine 10 MG TABLET PO SCH (21:30)
[2021-12-02] MEDS: PRENATAL VITAMINS W/ FOLIC ACID TABLET (FP) PO SCH (10:03)
[2021-12-02] MEDS: SERTRALINE HCL 50 MG TABLET (FP) PO SCH (10:03)
[2021-12-02] MEDS: THIAMINE HCL 100 MG TABLET (FP) PO SCH (21:01)
[2021-12-02] MEDS: OLANZapine 10 MG TABLET PO SCH (21:01)
[2021-12-02] MEDS: MELATONIN 5 MG TABLETS PO SCH (21:01)
[2021-12-03] MEDS: PRENATAL VITAMINS W/ FOLIC ACID TABLET (FP) PO SCH (12:32)
[2021-12-03] MEDS: SERTRALINE HCL 50 MG TABLET (FP) PO SCH (12:32)
[2021-12-03] MEDS: MELATONIN 5 MG TABLETS PO SCH (21:25)
[2021-12-03] MEDS: THIAMINE HCL 100 MG TABLET (FP) PO SCH (21:26)
[2021-12-03] MEDS: OLANZapine 10 MG TABLET PO SCH (21:27)
[2021-12-04 07:15] VITALS: BP 116/73; PULSE 59; TEMP 98.7
[2021-12-04] MEDS: SERTRALINE HCL 50 MG TABLET (FP) PO SCH (09:48)
[2021-12-04] MEDS: PRENATAL VITAMINS W/ FOLIC ACID TABLET (FP) PO SCH (09:49)
[2021-12-05 14:12] LABS: SARS-CoV-2 NAA Not Detected (Not Detected)
== END 2021-12-04 11:25 | disposition home or self-care (01) | DRG 772 ==
LOC: YASAS 13:40 → Y3W 13:42
PROVIDERS: ADMIT Allergy & Immunology; ATTEND Psychiatry & Neurology Pain Medicine
PROC: HZ42ZZZ Group Counseling for Substance Abuse Treatment, Cognitive-Behavioral (ICD-10-PCS; principal; 2021-12-01)
DX: F10.20 Alcohol dependence, uncomplicated (principal); F14.20 Cocaine dependence, uncomplicated; F12.20 Cannabis dependence, uncomplicated; F17.210 Nicotine dependence, cigarettes, uncomplicated; F25.9 Schizoaffective disorder, unspecified; F19.24 Other psychoactive substance dependence with psychoactive substance-induced mood disorder; F32.A Depression, unspecified; F41.9 Anxiety disorder, unspecified
CPT/HCPCS: C9803-CS; U0003; U0005

== ENCOUNTER 2022-05-08 06:21 | Inpatient (IN) | payer OTHER ==
[2022-05-08 06:42] VITALS: BMI 22.8
[2022-05-08] MEDS ORDERED: IBUPROFEN 600 MG TABLET (FP) PO PRN (09:25)
[2022-05-08] MEDS ORDERED: IBUPROFEN 400 MG TABLET (FP) PO PRN (09:25)
[2022-05-08] MEDS ORDERED: LOPERAMIDE HCL 2 MG CAPSULE PO PRN (09:25)
[2022-05-08] MEDS ORDERED: NALOXONE HCL (KLOXXADO) 8 MG SPRAY NS PRN (09:25)
[2022-05-08] MEDS ORDERED: ACETAMINOPHEN 325 MG TABLET (FP) PO PRN ×2 (09:25)
[2022-05-08] MEDS ORDERED: ONDANSETRON *ODT* 4 MG TABLET SL PRN (09:25)
[2022-05-08] MEDS ORDERED: MAG HYDROX/AL HYDROX/SIMETH 30 ML UNIT-DOSE CUP PO PRN (09:25)
[2022-05-08] MEDS ORDERED: MAGNESIUM CITRATE 300 ML BOTTLE PO PRN (09:25)
[2022-05-08] MEDS ORDERED: BISMUTH SUBSALICYLATE 524 MG/30 ML PO PRN (09:25)
[2022-05-08] MEDS ORDERED: BENZOCAINE/MENTHOL (CHLORASEPTIC ) LOZENGE MM PRN (09:25)
[2022-05-08] MEDS ORDERED: DICYCLOMINE HCL 10 MG CAPSULE PO PRN (09:25)
[2022-05-08] MEDS ORDERED: NICOTINE 10 MG CARTRIDGE (INHALER) IH PRN (09:25)
[2022-05-08] MEDS: PRENATAL VITAMINS W/ FOLIC ACID TABLET (FP) PO SCH (11:20)
[2022-05-08] MEDS: MAGNESIUM HYDROX 2400MG/30ML ORAL SUSPENSION 30 ML CUP PO PRN (21:47)
[2022-05-08] MEDS: MELATONIN 5 MG TABLETS PO SCH (22:19)
[2022-05-08] MEDS: METHOCARBAMOL 500 MG TABLET PO PRN (22:20)
[2022-05-08] MEDS: THIAMINE HCL 100 MG TABLET (FP) PO SCH (22:20)
[2022-05-09] MEDS: METHOCARBAMOL 500 MG TABLET PO PRN ×2 (07:06→18:44)
[2022-05-09] MEDS: MAGNESIUM HYDROX 2400MG/30ML ORAL SUSPENSION 30 ML CUP PO PRN (09:05)
[2022-05-09] MEDS: PRENATAL VITAMINS W/ FOLIC ACID TABLET (FP) PO SCH (10:26)
[2022-05-09 11:29] LABS: ALBUMIN 3.3 g/dl (3.4-5.0); BLOOD UREA NITROGEN 13.6 mg/dL (7-18); CALCIUM 8.8 mg/dL (8.5-10.1)
[2022-05-09 11:31] LABS: HEMATOCRIT 38.6 % (35.4-49); HEMOGLOBIN 13.2 GM/dL (11.7-16.9); MCHC 34.1 g/dl (32.0-35.9); MEAN CELL VOLUME 93.8 fl (80-96); MEAN PLT VOLUME 7.7 fl (7.5-11.1); PLATELET COUNT 264 10^3/uL (134-434); RBC 4.11 M/mm3 (4.00-5.60); RDW 13.6 % (11.9-15.9); WHITE BLOOD COUNT 5.6 K/mm3 (4.0-10.0)
[2022-05-09 11:32] LABS: CREATININE 1.1 mg/dL (0.55-1.3)
[2022-05-09 11:34] LABS: BILIRUBIN,TOTAL 0.3 mg/dL (0.2-1); TOT PROT 6.4 g/dl (6.4-8.2)
[2022-05-09] MEDS: hydrOXYzine PAMOATE 25 MG CAPSULE (FP) PO PRN ×2 (18:44→22:13)
[2022-05-09] MEDS ORDERED: OLANZapine 10 MG TABLET PO SCH (22:00)
[2022-05-09] MEDS: MELATONIN 5 MG TABLETS PO SCH (22:12)
[2022-05-09] MEDS: THIAMINE HCL 100 MG TABLET (FP) PO SCH (22:12)
[2022-05-10 09:11] VITALS: BP 114/74; PULSE 75; RESP 18; TEMP 98
[2022-05-10] MEDS ORDERED: SERTRALINE HCL 50 MG TABLET (FP) PO SCH (10:00)
[2022-05-10] MEDS: PRENATAL VITAMINS W/ FOLIC ACID TABLET (FP) PO SCH (10:07)
== END 2022-05-10 11:44 | disposition other institution (70) | DRG 774 ==
LOC: YASAS 06:21 → UNDOADMIN 09:57 → Y3N 09:57 → UNDODISIN 05-10 11:44
PROVIDERS: ADMIT Allergy & Immunology; ATTEND Surgery
PROC: HZ2ZZZZ Detoxification Services for Substance Abuse Treatment (ICD-10-PCS; principal; 2022-05-08)
DX: F10.230 Alcohol dependence with withdrawal, uncomplicated (principal); F14.20 Cocaine dependence, uncomplicated; F16.20 Hallucinogen dependence, uncomplicated; F12.20 Cannabis dependence, uncomplicated; F25.9 Schizoaffective disorder, unspecified; F19.24 Other psychoactive substance dependence with psychoactive substance-induced mood disorder; F41.9 Anxiety disorder, unspecified; G47.00 Insomnia, unspecified; F32.A Depression, unspecified; Z28.310 Unvaccinated for COVID-19; Z28.9 Immunization not carried out for unspecified reason; Z91.199 Patient's noncompliance with other medical treatment and regimen due to unspecified reason
CPT/HCPCS: 36415; 80053; 85027; 86780; 87811; C9803-CS; U0003; U0005

== ENCOUNTER 2022-12-17 08:48 | Inpatient (IN) | payer OTHER ==
[2022-12-17 09:24] VITALS: BMI 23.0
[2022-12-17] MEDS ORDERED: BENZONATATE 200 MG CAPSULE PO PRN (10:38)
[2022-12-17] MEDS ORDERED: ACETAMINOPHEN 325 MG TABLET (FP) PO PRN (10:38)
[2022-12-17] MEDS ORDERED: BENZOCAINE/MENTHOL (CHLORASEPTIC ) LOZENGE MM PRN (10:38)
[2022-12-17] MEDS ORDERED: guaiFENesin 600 MG TABLET.ER (FP) PO PRN (10:38)
[2022-12-17] MEDS ORDERED: DICYCLOMINE HCL 10 MG CAPSULE PO PRN (10:38)
[2022-12-17] MEDS ORDERED: MAGNESIUM HYDROX 2400MG/30ML ORAL SUSPENSION 30 ML CUP PO PRN (10:38)
[2022-12-17] MEDS ORDERED: NALOXONE HCL (KLOXXADO) 8 MG SPRAY NS PRN (10:38)
[2022-12-17] MEDS ORDERED: BISMUTH SUBSALICYLATE 524 MG/30 ML PO PRN (10:38)
[2022-12-17] MEDS ORDERED: MAG HYDROX/AL HYDROX/SIMETH 30 ML UNIT-DOSE CUP PO PRN (10:38)
[2022-12-17] MEDS ORDERED: IBUPROFEN 600 MG TABLET (FP) PO PRN (10:38)
[2022-12-17] MEDS ORDERED: ONDANSETRON *ODT* 4 MG TABLET SL PRN (10:38)
[2022-12-17] MEDS ORDERED: METHOCARBAMOL 500 MG TABLET PO PRN (10:38)
[2022-12-17] MEDS ORDERED: AMMONIUM LACTATE 12% LOTION 225 GM BOTTLE TP PRN (10:38)
[2022-12-17] MEDS ORDERED: NICOTINE 10 MG CARTRIDGE (INHALER) IH PRN (10:38)
[2022-12-17] MEDS ORDERED: LOPERAMIDE HCL 2 MG CAPSULE PO PRN (10:38)
[2022-12-17] MEDS ORDERED: POLYETHYLENE GLYCOL (HEALTHYLAX) 3350 17 GM PACKET PO PRN (10:38)
[2022-12-17] MEDS ORDERED: NICOTINE POLACRILEX 2 MG GUM BUC PRN (10:38)
[2022-12-17] MEDS ORDERED: hydrOXYzine PAMOATE 25 MG CAPSULE (FP) PO PRN (10:38)
[2022-12-17] MEDS ORDERED: COLLOIDAL OATMEAL 1 BAR EACH TP PRN (10:38)
[2022-12-17] MEDS ORDERED: NALOXONE HCL 0.4 MG/ML VIAL IM PRN (10:38)
[2022-12-17] MEDS ORDERED: IBUPROFEN 400 MG TABLET (FP) PO PRN (10:38)
[2022-12-17 14:17] LABS: HEMATOCRIT 39.9 % (35.4-49); HEMOGLOBIN 13.4 GM/dL (11.7-16.9); MCH 31.8 pg (25.7-33.7); MCHC 33.7 g/dl (32.0-35.9); MEAN CELL VOLUME 94.5 fl (80-96); MEAN PLT VOLUME 8.3 fl (7.5-11.1); PLATELET COUNT 298 10^3/uL (134-434); RBC 4.22 M/mm3 (4.00-5.60); RDW 14.6 % (11.9-15.9); WHITE BLOOD COUNT 6.9 K/mm3 (4.0-10.0)
[2022-12-17 14:40] LABS: POTASSIUM 4.3 mmol/L (3.5-5.1)
[2022-12-17 14:42] LABS: BLOOD UREA NITROGEN 19.9 mg/dL (7-18)
[2022-12-17 14:43] LABS: ALBUMIN 3.5 g/dl (3.4-5.0)
[2022-12-17 14:45] LABS: CREATININE 1.3 mg/dL (0.55-1.3)
[2022-12-17 14:47] LABS: BILIRUBIN,TOTAL 0.4 mg/dL (0.2-1); TOT PROT 6.8 g/dl (6.4-8.2)
[2022-12-17] MEDS: OLANZapine 10 MG TABLET PO SCH (22:15)
[2022-12-17] MEDS: THIAMINE HCL 100 MG TABLET (FP) PO SCH (22:15)
[2022-12-17] MEDS: MELATONIN 5 MG TABLETS PO SCH (22:15)
[2022-12-18] MEDS ORDERED: LORazepam 1 MG TABLET PO PRN (08:41)
[2022-12-18] MEDS: LORazepam 2 MG TABLET PO SCH ×3 (10:12→22:19)
[2022-12-18] MEDS: SERTRALINE HCL 50 MG TABLET (FP) PO SCH (10:12)
[2022-12-18] MEDS: PRENATAL VITAMINS W/ FOLIC ACID TABLET (FP) PO SCH (10:12)
[2022-12-18] MEDS: OLANZapine 10 MG TABLET PO SCH (22:19)
[2022-12-18] MEDS: MELATONIN 5 MG TABLETS PO SCH (22:19)
[2022-12-18] MEDS: THIAMINE HCL 100 MG TABLET (FP) PO SCH (22:19)
[2022-12-19] MEDS: LORazepam 1 MG TABLET PO SCH ×3 (05:47→17:34)
[2022-12-19] MEDS: SERTRALINE HCL 50 MG TABLET (FP) PO SCH (10:38)
[2022-12-19] MEDS: PRENATAL VITAMINS W/ FOLIC ACID TABLET (FP) PO SCH (10:38)
[2022-12-19 18:09] VITALS: BP 133/67; PULSE 74; RESP 16; TEMP 97.8
[2022-12-20] MEDS ORDERED: LORazepam 0.5 MG TABLET PO PRN
[2022-12-20] MEDS ORDERED: LORazepam 0.5 MG TABLET PO SCH (05:00)
[2022-12-21] MEDS ORDERED: LORazepam 0.5 MG TABLET PO ONE (05:00)
== END 2022-12-19 18:38 | disposition left against medical advice (07) | DRG 770 ==
LOC: YASAS 08:48 → Y6N 10:29
PROVIDERS: ADMIT Allergy & Immunology; ATTEND Surgery
PROC: HZ2ZZZZ Detoxification Services for Substance Abuse Treatment (ICD-10-PCS; principal; 2022-12-17)
DX: F10.230 Alcohol dependence with withdrawal, uncomplicated (principal); F14.20 Cocaine dependence, uncomplicated; F16.20 Hallucinogen dependence, uncomplicated; F12.20 Cannabis dependence, uncomplicated; F17.210 Nicotine dependence, cigarettes, uncomplicated; F25.1 Schizoaffective disorder, depressive type; F19.24 Other psychoactive substance dependence with psychoactive substance-induced mood disorder; F41.9 Anxiety disorder, unspecified; F32.A Depression, unspecified; G47.00 Insomnia, unspecified; Z91.199 Patient's noncompliance with other medical treatment and regimen due to unspecified reason
CPT/HCPCS: 36415; 80053; 83036; 85027; 86780; 87635

== ENCOUNTER 2023-03-12 12:21 | Inpatient (IN) | payer OTHER ==
[2023-03-12 12:44] VITALS: BMI 25.4
[2023-03-12] MEDS ORDERED: IBUPROFEN 600 MG TABLET (FP) PO PRN (13:09)
[2023-03-12] MEDS ORDERED: NALOXONE HCL 0.4 MG/ML VIAL IM PRN (13:09)
[2023-03-12] MEDS ORDERED: METHOCARBAMOL 500 MG TABLET PO PRN (13:09)
[2023-03-12] MEDS ORDERED: LOPERAMIDE HCL 2 MG CAPSULE PO PRN (13:09)
[2023-03-12] MEDS ORDERED: IBUPROFEN 400 MG TABLET (FP) PO PRN (13:09)
[2023-03-12] MEDS ORDERED: NALOXONE HCL (KLOXXADO) 8 MG SPRAY NS PRN (13:09)
[2023-03-12] MEDS ORDERED: ONDANSETRON *ODT* 4 MG TABLET SL PRN (13:09)
[2023-03-12] MEDS ORDERED: BENZONATATE 200 MG CAPSULE PO PRN (13:09)
[2023-03-12] MEDS ORDERED: guaiFENesin 600 MG TABLET.ER (FP) PO PRN (13:09)
[2023-03-12] MEDS ORDERED: POLYETHYLENE GLYCOL (HEALTHYLAX) 3350 17 GM PACKET PO PRN (13:09)
[2023-03-12] MEDS ORDERED: DICYCLOMINE HCL 10 MG CAPSULE PO PRN (13:09)
[2023-03-12] MEDS ORDERED: MAGNESIUM HYDROX 2400MG/30ML ORAL SUSPENSION 30 ML CUP PO PRN (13:09)
[2023-03-12] MEDS ORDERED: BISMUTH SUBSALICYLATE 524 MG/30 ML PO PRN (13:09)
[2023-03-12] MEDS ORDERED: ACETAMINOPHEN 325 MG TABLET (FP) PO PRN (13:09)
[2023-03-12] MEDS ORDERED: hydrOXYzine PAMOATE 25 MG CAPSULE (FP) PO PRN (13:09)
[2023-03-12] MEDS ORDERED: MAG HYDROX/AL HYDROX/SIMETH 30 ML UNIT-DOSE CUP PO PRN (13:09)
[2023-03-12] MEDS ORDERED: NICOTINE POLACRILEX 4 MG GUM BUC PRN (13:09)
[2023-03-12] MEDS ORDERED: BENZOCAINE/MENTHOL (CHLORASEPTIC ) LOZENGE MM PRN (13:09)
[2023-03-12] MEDS ORDERED: PRENATAL VITAMINS W/ FOLIC ACID TABLET (FP) PO ONE (14:27)
[2023-03-12] MEDS: PRENATAL VITAMINS W/ FOLIC ACID TABLET (FP) PO SCH (14:29)
[2023-03-12 15:47] LABS: HEMOGLOBIN 13.8 GM/dL (11.7-16.9); MCH 30.5 pg (25.7-33.7); MCHC 32.9 g/dl (32.0-35.9); MEAN CELL VOLUME 92.7 fl (80-96); MEAN PLT VOLUME 7.9 fl (7.5-11.1); PLATELET COUNT 357 10^3/uL (134-434); RBC 4.53 M/mm3 (4.00-5.60); RDW 14.9 % (11.9-15.9); WHITE BLOOD COUNT 5.8 K/mm3 (4.0-10.0)
[2023-03-12 15:55] LABS: POTASSIUM 4.6 mmol/L (3.5-5.1)
[2023-03-12 16:09] LABS: ALBUMIN 3.7 g/dl (3.4-5.0); BLOOD UREA NITROGEN 12.6 mg/dL (7-18); CALCIUM 9.2 mg/dL (8.5-10.1)
[2023-03-12 16:12] LABS: CREATININE 1.1 mg/dL (0.55-1.3)
[2023-03-12 16:14] LABS: BILIRUBIN,TOTAL 0.6 mg/dL (0.2-1); TOT PROT 7.4 g/dl (6.4-8.2)
[2023-03-12] MEDS: MELATONIN 5 MG TABLETS PO SCH (22:10)
[2023-03-12] MEDS: OLANZapine 10 MG TABLET PO SCH (22:10)
[2023-03-12] MEDS: THIAMINE HCL 100 MG TABLET (FP) PO SCH (22:10)
[2023-03-13] MEDS: SERTRALINE HCL 50 MG TABLET (FP) PO SCH (09:50)
[2023-03-13] MEDS: PRENATAL VITAMINS W/ FOLIC ACID TABLET (FP) PO SCH (09:50)
[2023-03-13] MEDS: OLANZapine 10 MG TABLET PO SCH (22:32)
[2023-03-13] MEDS: THIAMINE HCL 100 MG TABLET (FP) PO SCH (22:32)
[2023-03-13] MEDS: MELATONIN 5 MG TABLETS PO SCH (22:33)
[2023-03-14 09:52] VITALS: BP 153/76; PULSE 65; RESP 16; TEMP 97.7
[2023-03-14] MEDS: SERTRALINE HCL 50 MG TABLET (FP) PO SCH (10:29)
[2023-03-14] MEDS: PRENATAL VITAMINS W/ FOLIC ACID TABLET (FP) PO SCH (10:29)
== END 2023-03-14 11:38 | disposition other institution (70) | DRG 774 ==
LOC: YASAS 12:21 → Y6N 14:37
PROVIDERS: ADMIT Allergy & Immunology; ATTEND Allergy & Immunology
PROC: HZ2ZZZZ Detoxification Services for Substance Abuse Treatment (ICD-10-PCS; principal; 2023-03-12)
DX: F10.20 Alcohol dependence, uncomplicated (principal); F14.20 Cocaine dependence, uncomplicated; F12.20 Cannabis dependence, uncomplicated; F17.210 Nicotine dependence, cigarettes, uncomplicated; F25.1 Schizoaffective disorder, depressive type; F19.282 Other psychoactive substance dependence with psychoactive substance-induced sleep disorder; F32.A Depression, unspecified; F41.9 Anxiety disorder, unspecified; Z59.02 Unsheltered homelessness
CPT/HCPCS: 36415; 80053; 85027; 86780; 87635; 87811; 93005; 93010

== ENCOUNTER 2023-03-14 11:45 | Inpatient (IN) | payer OTHER ==
[2023-03-14] MEDS ORDERED: NALOXONE HCL 0.4 MG/ML VIAL IVPUSH PRN (12:13)
[2023-03-14] MEDS ORDERED: NICOTINE POLACRILEX 4 MG GUM BUC PRN (12:13)
[2023-03-14] MEDS ORDERED: IBUPROFEN 600 MG TABLET (FP) PO PRN (12:13)
[2023-03-14] MEDS ORDERED: BENZONATATE 200 MG CAPSULE PO PRN (12:13)
[2023-03-14] MEDS ORDERED: COLLOIDAL OATMEAL 1 BAR EACH TP PRN (12:13)
[2023-03-14] MEDS ORDERED: POLYETHYLENE GLYCOL (HEALTHYLAX) 3350 17 GM PACKET PO PRN (12:13)
[2023-03-14] MEDS ORDERED: guaiFENesin 600 MG TABLET.ER (FP) PO PRN (12:13)
[2023-03-14] MEDS ORDERED: LOPERAMIDE HCL 2 MG CAPSULE PO PRN (12:13)
[2023-03-14] MEDS ORDERED: BENZOCAINE/MENTHOL (CHLORASEPTIC ) LOZENGE MM PRN (12:13)
[2023-03-14] MEDS ORDERED: MAGNESIUM HYDROX 2400MG/30ML ORAL SUSPENSION 30 ML CUP PO PRN (12:13)
[2023-03-14] MEDS ORDERED: AMMONIUM LACTATE 12% LOTION 225 GM BOTTLE TP PRN (12:13)
[2023-03-14] MEDS ORDERED: NALOXONE HCL (KLOXXADO) 8 MG SPRAY NS PRN (12:13)
[2023-03-14] MEDS ORDERED: ACETAMINOPHEN 325 MG TABLET (FP) PO PRN (12:13)
[2023-03-14] MEDS ORDERED: NICOTINE 7 MG/24 HOURS TOPICAL PATCH TD PRN (12:13)
[2023-03-14] MEDS ORDERED: IBUPROFEN 400 MG TABLET (FP) PO PRN (12:13)
[2023-03-14] MEDS ORDERED: hydrOXYzine PAMOATE 25 MG CAPSULE (FP) PO PRN (12:13)
[2023-03-14] MEDS ORDERED: METHOCARBAMOL 500 MG TABLET PO PRN (12:13)
[2023-03-14] MEDS ORDERED: MAG HYDROX/AL HYDROX/SIMETH 30 ML UNIT-DOSE CUP PO PRN (12:13)
[2023-03-14] MEDS: MELATONIN 5 MG TABLETS PO SCH (21:12)
[2023-03-14] MEDS: THIAMINE HCL 100 MG TABLET (FP) PO SCH (21:12)
[2023-03-14] MEDS: OLANZapine 10 MG TABLET PO SCH (21:13)
[2023-03-15] MEDS: SERTRALINE HCL 50 MG TABLET (FP) PO SCH (10:16)
[2023-03-15] MEDS: PRENATAL VITAMINS W/ FOLIC ACID TABLET (FP) PO SCH (10:16)
[2023-03-15 11:17] LABS: HIV INTERPRETATION NEGATIVE (NEGATIVE)
[2023-03-15] MEDS: MELATONIN 5 MG TABLETS PO SCH (21:22)
[2023-03-15] MEDS: OLANZapine 10 MG TABLET PO SCH (21:22)
[2023-03-15] MEDS: THIAMINE HCL 100 MG TABLET (FP) PO SCH (21:22)
[2023-03-16 07:23] VITALS: RESP 18
[2023-03-16] MEDS: SERTRALINE HCL 50 MG TABLET (FP) PO SCH (09:28)
[2023-03-16] MEDS: PRENATAL VITAMINS W/ FOLIC ACID TABLET (FP) PO SCH (09:28)
[2023-03-16] MEDS: MELATONIN 5 MG TABLETS PO SCH (21:21)
[2023-03-16] MEDS: THIAMINE HCL 100 MG TABLET (FP) PO SCH (21:22)
[2023-03-16] MEDS: OLANZapine 10 MG TABLET PO SCH (21:22)
[2023-03-17 07:41] VITALS: PULSE 62
[2023-03-17] MEDS: SERTRALINE HCL 50 MG TABLET (FP) PO SCH (10:08)
[2023-03-17] MEDS: PRENATAL VITAMINS W/ FOLIC ACID TABLET (FP) PO SCH (10:08)
[2023-03-17] MEDS: MELATONIN 5 MG TABLETS PO SCH (21:39)
[2023-03-17] MEDS: OLANZapine 10 MG TABLET PO SCH (21:40)
[2023-03-17] MEDS: THIAMINE HCL 100 MG TABLET (FP) PO SCH (21:40)
[2023-03-18] MEDS: PRENATAL VITAMINS W/ FOLIC ACID TABLET (FP) PO SCH (10:05)
[2023-03-18] MEDS: SERTRALINE HCL 50 MG TABLET (FP) PO SCH (10:05)
[2023-03-18] MEDS: THIAMINE HCL 100 MG TABLET (FP) PO SCH (21:29)
[2023-03-18] MEDS: MELATONIN 5 MG TABLETS PO SCH (21:30)
[2023-03-18] MEDS: OLANZapine 10 MG TABLET PO SCH (21:30)
[2023-03-19 07:13] VITALS: BP 107/76; TEMP 96.8
[2023-03-19] MEDS: SERTRALINE HCL 50 MG TABLET (FP) PO SCH (10:14)
[2023-03-19] MEDS: PRENATAL VITAMINS W/ FOLIC ACID TABLET (FP) PO SCH (10:14)
== END 2023-03-19 13:14 | disposition home or self-care (01) | DRG 772 ==
LOC: YASAS 11:45 → Y3E 11:46
PROVIDERS: ADMIT Allergy & Immunology; ATTEND Psychiatry & Neurology Pain Medicine
PROC: HZ42ZZZ Group Counseling for Substance Abuse Treatment, Cognitive-Behavioral (ICD-10-PCS; principal; 2023-03-14)
DX: F10.20 Alcohol dependence, uncomplicated (principal); F14.20 Cocaine dependence, uncomplicated; F12.20 Cannabis dependence, uncomplicated; F17.210 Nicotine dependence, cigarettes, uncomplicated; F25.9 Schizoaffective disorder, unspecified; F41.9 Anxiety disorder, unspecified; F32.A Depression, unspecified
CPT/HCPCS: 36415; 87389

== ENCOUNTER 2023-05-02 00:55 | Inpatient (IN) | payer OTHER ==
[2023-05-02] MEDS ORDERED: POLYETHYLENE GLYCOL (HEALTHYLAX) 3350 17 GM PACKET PO PRN (02:25)
[2023-05-02] MEDS ORDERED: NALOXONE HCL (KLOXXADO) 8 MG SPRAY NS PRN (02:25)
[2023-05-02] MEDS ORDERED: MAGNESIUM HYDROX 2400MG/30ML ORAL SUSPENSION 30 ML CUP PO PRN (02:25)
[2023-05-02] MEDS ORDERED: IBUPROFEN 400 MG TABLET (FP) PO PRN (02:25)
[2023-05-02] MEDS ORDERED: NICOTINE POLACRILEX 2 MG GUM BUC PRN (02:25)
[2023-05-02] MEDS ORDERED: METHOCARBAMOL 500 MG TABLET PO PRN (02:25)
[2023-05-02] MEDS ORDERED: BENZONATATE 200 MG CAPSULE PO PRN (02:25)
[2023-05-02] MEDS ORDERED: ONDANSETRON *ODT* 4 MG TABLET SL PRN (02:25)
[2023-05-02] MEDS ORDERED: DICYCLOMINE HCL 10 MG CAPSULE PO PRN (02:25)
[2023-05-02] MEDS ORDERED: NALOXONE HCL 0.4 MG/ML VIAL IM PRN (02:25)
[2023-05-02] MEDS ORDERED: IBUPROFEN 600 MG TABLET (FP) PO PRN (02:25)
[2023-05-02] MEDS ORDERED: LOPERAMIDE HCL 2 MG CAPSULE PO PRN (02:25)
[2023-05-02] MEDS ORDERED: guaiFENesin 600 MG TABLET.ER (FP) PO PRN (02:25)
[2023-05-02] MEDS ORDERED: BISMUTH SUBSALICYLATE 524 MG/30 ML PO PRN (02:25)
[2023-05-02] MEDS ORDERED: MAG HYDROX/AL HYDROX/SIMETH 30 ML UNIT-DOSE CUP PO PRN (02:25)
[2023-05-02] MEDS ORDERED: BENZOCAINE/MENTHOL (CHLORASEPTIC ) LOZENGE MM PRN (02:25)
[2023-05-02] MEDS ORDERED: ACETAMINOPHEN 325 MG TABLET (FP) PO PRN (02:25)
[2023-05-02] MEDS: hydrOXYzine PAMOATE 25 MG CAPSULE (FP) PO PRN (03:25)
[2023-05-02] MEDS ORDERED: diazePAM 5 MG TABLET PO PRN (10:15)
[2023-05-02] MEDS: diazePAM 5 MG TABLET PO SCH ×3 (10:40→22:14)
[2023-05-02] MEDS: PRENATAL VITAMINS W/ FOLIC ACID TABLET (FP) PO SCH (10:40)
[2023-05-02] MEDS: NICOTINE 14 MG/24 HOURS TOPICAL PATCH TD SCH (10:41)
[2023-05-02] MEDS ORDERED: PATIENT'S OWN MEDICATION (NON-FORMULARY) (Olanzapine [Zyprexa] 10 MG Tablet) PO SCH (22:00)
[2023-05-02] MEDS: OLANZapine 10 MG TABLET PO SCH (22:14)
[2023-05-02] MEDS: THIAMINE HCL 100 MG TABLET (FP) PO SCH (22:15)
[2023-05-02] MEDS: MELATONIN 5 MG TABLETS PO SCH (22:15)
[2023-05-03] MEDS: diazePAM 5 MG TABLET PO SCH ×4 (05:26→22:11)
[2023-05-03] MEDS: PRENATAL VITAMINS W/ FOLIC ACID TABLET (FP) PO SCH (10:26)
[2023-05-03] MEDS: NICOTINE 14 MG/24 HOURS TOPICAL PATCH TD SCH (10:28)
[2023-05-03] MEDS: SERTRALINE HCL 50 MG TABLET (FP) PO SCH (10:28)
[2023-05-03 12:14] LABS: CHLORIDE 112 mmol/L (98-107); POTASSIUM 4.1 mmol/L (3.5-5.1); SODIUM 144 mmol/L (136-145)
[2023-05-03 12:18] LABS: CALCIUM 8.4 mg/dL (8.5-10.1); GLUCOSE,RANDOM 129 mg/dL (74-106)
[2023-05-03 12:19] LABS: ANION GAP 7 mmol/L (4-13); BLOOD UREA NITROGEN 15.4 mg/dL (7-18); CO2 25 mmol/L (21-32)
[2023-05-03 12:20] LABS: SGOT/AST 19 U/L (15-37); SGPT/ALT 29 U/L (13-61)
[2023-05-03 12:21] LABS: HEMATOCRIT 40.4 % (35.4-49); HEMOGLOBIN 13.2 GM/dL (11.7-16.9); MCH 30.8 pg (25.7-33.7); MCHC 32.6 g/dl (32.0-35.9); MEAN CELL VOLUME 94.6 fl (80-96); MEAN PLT VOLUME 7.9 fl (7.5-11.1); PLATELET COUNT 282 10^3/uL (134-434); RBC 4.27 M/mm3 (4.00-5.60)
[2023-05-03 12:22] LABS: BILIRUBIN,TOTAL < 0.1 mg/dL (0.2-1)
[2023-05-03 12:23] LABS: ALK PHOS 73 U/L (45-117)
[2023-05-03] MEDS: MELATONIN 5 MG TABLETS PO SCH (22:11)
[2023-05-03] MEDS: THIAMINE HCL 100 MG TABLET (FP) PO SCH (22:11)
[2023-05-03] MEDS: OLANZapine 10 MG TABLET PO SCH (22:11)
[2023-05-04] MEDS: diazePAM 5 MG TABLET PO SCH ×3 (05:39→22:13)
[2023-05-04] MEDS: SERTRALINE HCL 50 MG TABLET (FP) PO SCH (10:06)
[2023-05-04] MEDS: PRENATAL VITAMINS W/ FOLIC ACID TABLET (FP) PO SCH (10:06)
[2023-05-04] MEDS: NICOTINE 14 MG/24 HOURS TOPICAL PATCH TD SCH (10:08)
[2023-05-04 21:00] VITALS: TEMP 97.7
[2023-05-04] MEDS: hydrOXYzine PAMOATE 25 MG CAPSULE (FP) PO PRN (22:13)
[2023-05-04] MEDS: MELATONIN 5 MG TABLETS PO SCH (22:13)
[2023-05-04] MEDS: THIAMINE HCL 100 MG TABLET (FP) PO SCH (22:13)
[2023-05-04] MEDS: OLANZapine 10 MG TABLET PO SCH (22:13)
[2023-05-05] MEDS ORDERED: diazePAM 5 MG TABLET PO SCH (06:00)
[2023-05-05 09:21] VITALS: BP 119/69; PULSE 71; RESP 19
[2023-05-05] MEDS: SERTRALINE HCL 50 MG TABLET (FP) PO SCH (10:15)
[2023-05-05] MEDS: NICOTINE 14 MG/24 HOURS TOPICAL PATCH TD SCH (10:15)
[2023-05-05] MEDS: PRENATAL VITAMINS W/ FOLIC ACID TABLET (FP) PO SCH (10:15)
[2023-05-06] MEDS ORDERED: diazePAM 5 MG TABLET PO ONE (06:00)
== END 2023-05-05 12:30 | disposition home or self-care (01) | DRG 774 ==
LOC: YASAS 00:55 → Y3N 02:28
PROVIDERS: ADMIT Allergy & Immunology; ATTEND Allergy & Immunology
PROC: HZ2ZZZZ Detoxification Services for Substance Abuse Treatment (ICD-10-PCS; principal; 2023-05-02)
DX: F10.230 Alcohol dependence with withdrawal, uncomplicated (principal); F14.20 Cocaine dependence, uncomplicated; F16.20 Hallucinogen dependence, uncomplicated; F12.20 Cannabis dependence, uncomplicated; F17.210 Nicotine dependence, cigarettes, uncomplicated; F25.1 Schizoaffective disorder, depressive type; F19.24 Other psychoactive substance dependence with psychoactive substance-induced mood disorder; Z91.199 Patient's noncompliance with other medical treatment and regimen due to unspecified reason
CPT/HCPCS: 36415; 80053; 80307; 85027; 86780; 87635

== ENCOUNTER 2023-05-08 18:19 | Inpatient (IN) | payer OTHER ==
[2023-05-08 18:58] VITALS: BMI 25.2
[2023-05-08] MEDS ORDERED: guaiFENesin 600 MG TABLET.ER (FP) PO PRN (19:42)
[2023-05-08] MEDS ORDERED: MAG HYDROX/AL HYDROX/SIMETH 30 ML UNIT-DOSE CUP PO PRN (19:42)
[2023-05-08] MEDS ORDERED: BENZOCAINE/MENTHOL (CHLORASEPTIC ) LOZENGE MM PRN (19:42)
[2023-05-08] MEDS ORDERED: MAGNESIUM HYDROX 2400MG/30ML ORAL SUSPENSION 30 ML CUP PO PRN (19:42)
[2023-05-08] MEDS ORDERED: NICOTINE POLACRILEX 2 MG GUM BUC PRN (19:42)
[2023-05-08] MEDS ORDERED: NALOXONE HCL (KLOXXADO) 8 MG SPRAY NS PRN (19:42)
[2023-05-08] MEDS ORDERED: IBUPROFEN 400 MG TABLET (FP) PO PRN (19:42)
[2023-05-08] MEDS ORDERED: LOPERAMIDE HCL 2 MG CAPSULE PO PRN (19:42)
[2023-05-08] MEDS ORDERED: POLYETHYLENE GLYCOL (HEALTHYLAX) 3350 17 GM PACKET PO PRN (19:42)
[2023-05-08] MEDS ORDERED: COLLOIDAL OATMEAL 1 BAR EACH TP PRN (19:42)
[2023-05-08] MEDS ORDERED: ACETAMINOPHEN 325 MG TABLET (FP) PO PRN (19:42)
[2023-05-08] MEDS ORDERED: IBUPROFEN 600 MG TABLET (FP) PO PRN (19:42)
[2023-05-08] MEDS ORDERED: NALOXONE HCL 0.4 MG/ML VIAL IM PRN (19:42)
[2023-05-08] MEDS ORDERED: BENZONATATE 200 MG CAPSULE PO PRN (19:42)
[2023-05-09] MEDS: THIAMINE HCL 100 MG TABLET (FP) PO SCH ×2 (00:05→21:28)
[2023-05-09] MEDS: MELATONIN 5 MG TABLETS PO SCH ×2 (00:05→21:28)
[2023-05-09] MEDS: hydrOXYzine PAMOATE 25 MG CAPSULE (FP) PO PRN (04:07)
[2023-05-09] MEDS: NICOTINE 14 MG/24 HOURS TOPICAL PATCH TD SCH (10:01)
[2023-05-09] MEDS: PRENATAL VITAMINS W/ FOLIC ACID TABLET (FP) PO SCH (10:01)
[2023-05-09 12:36] LABS: EPI CELLS 12 /uL (0-25.1); HYALINE CASTS 0 /uL (0-3.1); URINE APPEARANCE CLEAR; URINE BACTERIA 24 /uL (0-1359); URINE BILIRUBIN NEGATIVE (NEGATIVE); URINE COLOR YELLOW; URINE GLUCOSE (UA) NEGATIVE (NEGATIVE); URINE KETONE NEGATIVE (NEGATIVE); URINE LEUK ESTERASE 1+ (NEGATIVE); URINE NITRITE NEGATIVE (NEGATIVE); URINE PROTEIN NEGATIVE (NEGATIVE); URINE RBC 4 /uL (0-23.9); URINE WBC 25 /uL (0-25.8)
[2023-05-09 12:39] LABS: HEMATOCRIT 40.6 % (35.4-49); HEMOGLOBIN 13.6 GM/dL (11.7-16.9); MCHC 33.6 g/dl (32.0-35.9); MEAN CELL VOLUME 92.2 fl (80-96); MEAN PLT VOLUME 8.4 fl (7.5-11.1); PLATELET COUNT 278 10^3/uL (134-434); RBC 4.41 M/mm3 (4.00-5.60); RDW 15.4 % (11.9-15.9); WHITE BLOOD COUNT 6.7 K/mm3 (4.0-10.0)
[2023-05-09 12:42] LABS: CHLORIDE 109 mmol/L (98-107); POTASSIUM 4.7 mmol/L (3.5-5.1); SODIUM 141 mmol/L (136-145)
[2023-05-09 12:45] LABS: BLOOD UREA NITROGEN 20.9 mg/dL (7-18)
[2023-05-09 12:47] LABS: ANION GAP 6 mmol/L (4-13); CALCIUM 8.6 mg/dL (8.5-10.1); CO2 26 mmol/L (21-32); GLUCOSE,RANDOM 140 mg/dL (74-106)
[2023-05-09 12:50] LABS: BILIRUBIN,TOTAL 0.3 mg/dL (0.2-1); CREATININE 0.8 mg/dL (0.55-1.3); SGOT/AST 71 U/L (15-37); SGPT/ALT 106 U/L (13-61); TOT PROT 5.8 g/dl (6.4-8.2)
[2023-05-09 12:51] LABS: ALK PHOS 67 U/L (45-117)
[2023-05-09] MEDS: OLANZapine 10 MG TABLET PO SCH (21:28)
[2023-05-10] MEDS: hydrOXYzine PAMOATE 25 MG CAPSULE (FP) PO PRN (07:01)
[2023-05-10] MEDS: PRENATAL VITAMINS W/ FOLIC ACID TABLET (FP) PO SCH (10:17)
[2023-05-10] MEDS: NICOTINE 14 MG/24 HOURS TOPICAL PATCH TD SCH (10:18)
[2023-05-10] MEDS: SERTRALINE HCL 50 MG TABLET (FP) PO SCH (12:09)
[2023-05-10] MEDS: THIAMINE HCL 100 MG TABLET (FP) PO SCH (21:24)
[2023-05-10] MEDS: MELATONIN 5 MG TABLETS PO SCH (21:24)
[2023-05-10] MEDS: OLANZapine 10 MG TABLET PO SCH (22:17)
[2023-05-11] MEDS: NICOTINE 14 MG/24 HOURS TOPICAL PATCH TD SCH (10:15)
[2023-05-11] MEDS: PRENATAL VITAMINS W/ FOLIC ACID TABLET (FP) PO SCH (10:15)
[2023-05-11] MEDS: SERTRALINE HCL 50 MG TABLET (FP) PO SCH (10:16)
[2023-05-11] MEDS: MELATONIN 5 MG TABLETS PO SCH (21:44)
[2023-05-11] MEDS: OLANZapine 10 MG TABLET PO SCH (21:44)
[2023-05-11] MEDS: THIAMINE HCL 100 MG TABLET (FP) PO SCH (21:44)
[2023-05-12] MEDS: NICOTINE 14 MG/24 HOURS TOPICAL PATCH TD SCH (10:26)
[2023-05-12] MEDS: SERTRALINE HCL 50 MG TABLET (FP) PO SCH (10:26)
[2023-05-12] MEDS: PRENATAL VITAMINS W/ FOLIC ACID TABLET (FP) PO SCH (10:26)
[2023-05-12] MEDS: THIAMINE HCL 100 MG TABLET (FP) PO SCH (21:46)
[2023-05-12] MEDS: MELATONIN 5 MG TABLETS PO SCH (21:46)
[2023-05-12] MEDS: OLANZapine 10 MG TABLET PO SCH (21:46)
[2023-05-13] MEDS: SERTRALINE HCL 50 MG TABLET (FP) PO SCH (09:57)
[2023-05-13] MEDS: PRENATAL VITAMINS W/ FOLIC ACID TABLET (FP) PO SCH (09:57)
[2023-05-13] MEDS: NICOTINE 14 MG/24 HOURS TOPICAL PATCH TD SCH (09:58)
[2023-05-13] MEDS: hydrOXYzine PAMOATE 25 MG CAPSULE (FP) PO PRN (14:20)
[2023-05-13] MEDS: THIAMINE HCL 100 MG TABLET (FP) PO SCH (21:49)
[2023-05-13] MEDS: OLANZapine 10 MG TABLET PO SCH (21:49)
[2023-05-13] MEDS: MELATONIN 5 MG TABLETS PO SCH (21:50)
[2023-05-14] MEDS: NICOTINE 14 MG/24 HOURS TOPICAL PATCH TD SCH (10:20)
[2023-05-14] MEDS: PRENATAL VITAMINS W/ FOLIC ACID TABLET (FP) PO SCH (10:20)
[2023-05-14] MEDS: SERTRALINE HCL 50 MG TABLET (FP) PO SCH (10:21)
[2023-05-14] MEDS: THIAMINE HCL 100 MG TABLET (FP) PO SCH (21:02)
[2023-05-14] MEDS: OLANZapine 10 MG TABLET PO SCH (21:02)
[2023-05-14] MEDS: MELATONIN 5 MG TABLETS PO SCH (21:02)
[2023-05-15 07:08] VITALS: RESP 18
[2023-05-15] MEDS: PRENATAL VITAMINS W/ FOLIC ACID TABLET (FP) PO SCH (09:55)
[2023-05-15] MEDS: SERTRALINE HCL 50 MG TABLET (FP) PO SCH (09:55)
[2023-05-15] MEDS: NICOTINE 14 MG/24 HOURS TOPICAL PATCH TD SCH (09:56)
[2023-05-15] MEDS: THIAMINE HCL 100 MG TABLET (FP) PO SCH (21:27)
[2023-05-15] MEDS: OLANZapine 10 MG TABLET PO SCH (21:27)
[2023-05-15] MEDS: MELATONIN 5 MG TABLETS PO SCH (21:27)
[2023-05-16] MEDS: PRENATAL VITAMINS W/ FOLIC ACID TABLET (FP) PO SCH (10:09)
[2023-05-16] MEDS: SERTRALINE HCL 50 MG TABLET (FP) PO SCH (10:09)
[2023-05-16] MEDS: NICOTINE 14 MG/24 HOURS TOPICAL PATCH TD SCH (10:10)
[2023-05-16] MEDS: OLANZapine 10 MG TABLET PO SCH (21:32)
[2023-05-16] MEDS: MELATONIN 5 MG TABLETS PO SCH (21:32)
[2023-05-16] MEDS: THIAMINE HCL 100 MG TABLET (FP) PO SCH (21:32)
[2023-05-17] MEDS: NICOTINE 14 MG/24 HOURS TOPICAL PATCH TD SCH (10:13)
[2023-05-17] MEDS: SERTRALINE HCL 50 MG TABLET (FP) PO SCH (10:13)
[2023-05-17] MEDS: PRENATAL VITAMINS W/ FOLIC ACID TABLET (FP) PO SCH (10:13)
[2023-05-17] MEDS: OLANZapine 10 MG TABLET PO SCH (21:33)
[2023-05-17] MEDS: THIAMINE HCL 100 MG TABLET (FP) PO SCH (21:33)
[2023-05-17] MEDS: MELATONIN 5 MG TABLETS PO SCH (21:33)
[2023-05-18] MEDS: PRENATAL VITAMINS W/ FOLIC ACID TABLET (FP) PO SCH (09:51)
[2023-05-18] MEDS: NICOTINE 14 MG/24 HOURS TOPICAL PATCH TD SCH (09:51)
[2023-05-18] MEDS: SERTRALINE HCL 50 MG TABLET (FP) PO SCH (09:51)
[2023-05-18] MEDS: THIAMINE HCL 100 MG TABLET (FP) PO SCH (21:31)
[2023-05-18] MEDS: OLANZapine 10 MG TABLET PO SCH (21:31)
[2023-05-18] MEDS: MELATONIN 5 MG TABLETS PO SCH (21:31)
[2023-05-19] MEDS: PRENATAL VITAMINS W/ FOLIC ACID TABLET (FP) PO SCH (10:03)
[2023-05-19] MEDS: SERTRALINE HCL 50 MG TABLET (FP) PO SCH (10:03)
[2023-05-19] MEDS: NICOTINE 14 MG/24 HOURS TOPICAL PATCH TD SCH (10:04)
[2023-05-19] MEDS: OLANZapine 10 MG TABLET PO SCH (21:28)
[2023-05-19] MEDS: MELATONIN 5 MG TABLETS PO SCH (21:28)
[2023-05-19] MEDS: THIAMINE HCL 100 MG TABLET (FP) PO SCH (21:28)
[2023-05-20 07:21] VITALS: BP 108/61; PULSE 60; TEMP 97.6
[2023-05-20] MEDS: SERTRALINE HCL 50 MG TABLET (FP) PO SCH (09:08)
[2023-05-20] MEDS: NICOTINE 14 MG/24 HOURS TOPICAL PATCH TD SCH (09:08)
[2023-05-20] MEDS: PRENATAL VITAMINS W/ FOLIC ACID TABLET (FP) PO SCH (09:08)
== END 2023-05-20 09:35 | disposition home or self-care (01) | DRG 772 ==
LOC: YASAS 18:19 → Y5N 05-09 00:37
PROVIDERS: ADMIT Surgery; ATTEND Psychiatry & Neurology Pain Medicine
PROC: HZ42ZZZ Group Counseling for Substance Abuse Treatment, Cognitive-Behavioral (ICD-10-PCS; principal; 2023-05-09)
DX: F10.20 Alcohol dependence, uncomplicated (principal); F14.20 Cocaine dependence, uncomplicated; F12.20 Cannabis dependence, uncomplicated; F17.210 Nicotine dependence, cigarettes, uncomplicated; F25.1 Schizoaffective disorder, depressive type; F19.282 Other psychoactive substance dependence with psychoactive substance-induced sleep disorder; F19.24 Other psychoactive substance dependence with psychoactive substance-induced mood disorder; R01.1 Cardiac murmur, unspecified; Z56.0 Unemployment, unspecified; Z59.01 Sheltered homelessness
CPT/HCPCS: 36415; 80053; 80307; 81003; 85027; 86780; 87635

== ENCOUNTER 2023-05-31 08:18 | Inpatient (IN) | payer OTHER ==
[2023-05-31 09:10] VITALS: BMI 27.8
[2023-05-31] MEDS ORDERED: IBUPROFEN 400 MG TABLET (FP) PO PRN (09:29)
[2023-05-31] MEDS ORDERED: LOPERAMIDE HCL 2 MG CAPSULE PO PRN (09:29)
[2023-05-31] MEDS ORDERED: IBUPROFEN 600 MG TABLET (FP) PO PRN (09:29)
[2023-05-31] MEDS ORDERED: DICYCLOMINE HCL 10 MG CAPSULE PO PRN (09:29)
[2023-05-31] MEDS ORDERED: ONDANSETRON *ODT* 4 MG TABLET SL PRN (09:29)
[2023-05-31] MEDS ORDERED: METHOCARBAMOL 500 MG TABLET PO PRN (09:29)
[2023-05-31] MEDS ORDERED: hydrOXYzine PAMOATE 25 MG CAPSULE (FP) PO PRN (09:29)
[2023-05-31] MEDS ORDERED: POLYETHYLENE GLYCOL (HEALTHYLAX) 3350 17 GM PACKET PO PRN (09:29)
[2023-05-31] MEDS ORDERED: BENZONATATE 200 MG CAPSULE PO PRN (09:29)
[2023-05-31] MEDS ORDERED: ACETAMINOPHEN 325 MG TABLET (FP) PO PRN (09:29)
[2023-05-31] MEDS ORDERED: guaiFENesin 600 MG TABLET.ER (FP) PO PRN (09:29)
[2023-05-31] MEDS ORDERED: MAG HYDROX/AL HYDROX/SIMETH 30 ML UNIT-DOSE CUP PO PRN (09:29)
[2023-05-31] MEDS ORDERED: P-EPHED 60MG/TRIPROLIDI 2.5MG TABLET PO PRN (09:29)
[2023-05-31] MEDS ORDERED: MAGNESIUM HYDROX 2400MG/30ML ORAL SUSPENSION 30 ML CUP PO PRN (09:29)
[2023-05-31] MEDS ORDERED: BENZOCAINE/MENTHOL (CHLORASEPTIC ) LOZENGE MM PRN (09:29)
[2023-05-31] MEDS ORDERED: PRENATAL VITAMINS W/ FOLIC ACID TABLET (FP) PO ONE (09:53)
[2023-05-31] MEDS: PRENATAL VITAMINS W/ FOLIC ACID TABLET (FP) PO SCH (09:56)
[2023-05-31] MEDS: BISMUTH SUBSALICYLATE 262 MG/15 ML BTL PO PRN ×2 (18:06→19:54)
[2023-05-31] MEDS ORDERED: diazePAM 5 MG TABLET PO PRN (18:27)
[2023-05-31] MEDS: THIAMINE HCL 100 MG TABLET (FP) PO SCH (22:10)
[2023-05-31] MEDS: OLANZapine 10 MG TABLET PO SCH (22:10)
[2023-05-31] MEDS: MELATONIN 5 MG TABLETS PO SCH (22:10)
[2023-05-31] MEDS: diazePAM 5 MG TABLET PO SCH (22:11)
[2023-06-01] MEDS: diazePAM 5 MG TABLET PO SCH ×4 (04:50→22:10)
[2023-06-01] MEDS: SERTRALINE HCL 50 MG TABLET (FP) PO SCH (10:24)
[2023-06-01] MEDS: PRENATAL VITAMINS W/ FOLIC ACID TABLET (FP) PO SCH (10:24)
[2023-06-01] MEDS: THIAMINE HCL 100 MG TABLET (FP) PO SCH (22:10)
[2023-06-01] MEDS: MELATONIN 5 MG TABLETS PO SCH (22:10)
[2023-06-01] MEDS: OLANZapine 10 MG TABLET PO SCH (22:10)
[2023-06-02] MEDS: diazePAM 5 MG TABLET PO SCH ×3 (06:04→22:32)
[2023-06-02] MEDS: SERTRALINE HCL 50 MG TABLET (FP) PO SCH (10:00)
[2023-06-02] MEDS: PRENATAL VITAMINS W/ FOLIC ACID TABLET (FP) PO SCH (10:00)
[2023-06-02] MEDS: OLANZapine 10 MG TABLET PO SCH (21:59)
[2023-06-02] MEDS: THIAMINE HCL 100 MG TABLET (FP) PO SCH (22:00)
[2023-06-02] MEDS: MELATONIN 5 MG TABLETS PO SCH (22:00)
[2023-06-03] MEDS ORDERED: diazePAM 5 MG TABLET PO SCH (06:00)
[2023-06-03] MEDS: SERTRALINE HCL 50 MG TABLET (FP) PO SCH (10:16)
[2023-06-03] MEDS: PRENATAL VITAMINS W/ FOLIC ACID TABLET (FP) PO SCH (10:16)
[2023-06-03 13:08] VITALS: BP 107/61; PULSE 76; RESP 17; TEMP 97.5
[2023-06-04] MEDS ORDERED: diazePAM 5 MG TABLET PO ONE (06:00)
== END 2023-06-03 13:48 | disposition home or self-care (01) | DRG 774 ==
LOC: YASAS 08:18 → Y3N 09:43
PROVIDERS: ADMIT Allergy & Immunology; ATTEND Surgery
PROC: HZ2ZZZZ Detoxification Services for Substance Abuse Treatment (ICD-10-PCS; principal; 2023-05-31)
DX: F10.230 Alcohol dependence with withdrawal, uncomplicated (principal); F14.20 Cocaine dependence, uncomplicated; F16.20 Hallucinogen dependence, uncomplicated; F12.20 Cannabis dependence, uncomplicated; F17.210 Nicotine dependence, cigarettes, uncomplicated; F25.9 Schizoaffective disorder, unspecified; F19.24 Other psychoactive substance dependence with psychoactive substance-induced mood disorder; F41.9 Anxiety disorder, unspecified; F32.A Depression, unspecified; Z28.311 Partially vaccinated for COVID-19
CPT/HCPCS: 36415; 80307; 87635; 87811

== ENCOUNTER 2023-06-17 13:00 | Inpatient (IN) | payer OTHER ==
[2023-06-17 13:29] VITALS: BMI 25.7
[2023-06-17] MEDS ORDERED: guaiFENesin 600 MG TABLET.ER (FP) PO PRN (16:55)
[2023-06-17] MEDS ORDERED: POLYETHYLENE GLYCOL (HEALTHYLAX) 3350 17 GM PACKET PO PRN (16:55)
[2023-06-17] MEDS ORDERED: COLLOIDAL OATMEAL 1 BAR EACH TP PRN (16:55)
[2023-06-17] MEDS ORDERED: MAGNESIUM HYDROX 2400MG/30ML ORAL SUSPENSION 30 ML CUP PO PRN (16:55)
[2023-06-17] MEDS ORDERED: ACETAMINOPHEN 325 MG TABLET (FP) PO PRN (16:55)
[2023-06-17] MEDS ORDERED: BENZONATATE 200 MG CAPSULE PO PRN (16:55)
[2023-06-17] MEDS ORDERED: IBUPROFEN 400 MG TABLET (FP) PO PRN (16:55)
[2023-06-17] MEDS ORDERED: NALOXONE HCL 0.4 MG/ML VIAL IM PRN (16:55)
[2023-06-17] MEDS ORDERED: NALOXONE HCL (KLOXXADO) 8 MG SPRAY NS PRN (16:55)
[2023-06-17] MEDS ORDERED: BENZOCAINE/MENTHOL (CHLORASEPTIC ) LOZENGE MM PRN (16:55)
[2023-06-17] MEDS ORDERED: NICOTINE POLACRILEX 2 MG GUM BUC PRN (16:55)
[2023-06-17] MEDS ORDERED: MAG HYDROX/AL HYDROX/SIMETH 30 ML UNIT-DOSE CUP PO PRN (16:55)
[2023-06-17] MEDS ORDERED: LOPERAMIDE HCL 2 MG CAPSULE PO PRN (16:55)
[2023-06-17] MEDS: hydrOXYzine PAMOATE 25 MG CAPSULE (FP) PO PRN (21:57)
[2023-06-17] MEDS: THIAMINE HCL 100 MG TABLET (FP) PO SCH (21:58)
[2023-06-17] MEDS: MELATONIN 5 MG TABLETS PO SCH (21:58)
[2023-06-17] MEDS: ARTIFICIAL TEARS OPHTHALMIC DROPS OD SCH (22:46)
[2023-06-18] MEDS: ARTIFICIAL TEARS OPHTHALMIC DROPS OD SCH ×3 (06:18→21:15)
[2023-06-18] MEDS: PRENATAL VITAMINS W/ FOLIC ACID TABLET (FP) PO SCH (09:41)
[2023-06-18] MEDS: hydrOXYzine PAMOATE 25 MG CAPSULE (FP) PO PRN ×2 (09:41→21:17)
[2023-06-18 10:36] LABS: HEMATOCRIT 36.9 % (35.4-49); HEMOGLOBIN 12.4 GM/dL (11.7-16.9); MCH 30.7 pg (25.7-33.7); MCHC 33.5 g/dl (32.0-35.9); MEAN CELL VOLUME 91.8 fl (80-96); PLATELET COUNT 253 10^3/uL (134-434); RBC 4.02 M/mm3 (4.00-5.60); RDW 14.3 % (11.9-15.9); WHITE BLOOD COUNT 6.6 K/mm3 (4.0-10.0)
[2023-06-18 10:39] LABS: CHLORIDE 109 mmol/L (98-107); SODIUM 140 mmol/L (136-145)
[2023-06-18 10:41] LABS: CALCIUM 8.4 mg/dL (8.5-10.1); GLUCOSE,RANDOM 165 mg/dL (74-106)
[2023-06-18 10:42] LABS: ALBUMIN 2.7 g/dl (3.4-5.0); ANION GAP 5 mmol/L (4-13); BLOOD UREA NITROGEN 13.5 mg/dL (7-18); CO2 26 mmol/L (21-32)
[2023-06-18 10:45] LABS: CREATININE 0.9 mg/dL (0.55-1.3); SGOT/AST 25 U/L (15-37); SGPT/ALT 303 U/L (13-61)
[2023-06-18 10:46] LABS: BILIRUBIN,TOTAL 0.3 mg/dL (0.2-1); TOT PROT 5.8 g/dl (6.4-8.2)
[2023-06-18 10:47] LABS: ALK PHOS 80 U/L (45-117)
[2023-06-18] MEDS: SERTRALINE HCL 50 MG TABLET (FP) PO SCH (11:06)
[2023-06-18] MEDS: MELATONIN 5 MG TABLETS PO SCH (21:15)
[2023-06-18] MEDS: THIAMINE HCL 100 MG TABLET (FP) PO SCH (21:16)
[2023-06-18] MEDS: OLANZapine 10 MG TABLET PO SCH (23:16)
[2023-06-19] MEDS: ARTIFICIAL TEARS OPHTHALMIC DROPS OD SCH ×3 (06:13→21:08)
[2023-06-19] MEDS: SERTRALINE HCL 50 MG TABLET (FP) PO SCH (09:58)
[2023-06-19] MEDS: PRENATAL VITAMINS W/ FOLIC ACID TABLET (FP) PO SCH (09:58)
[2023-06-19 11:24] LABS: POTASSIUM 4.3 mmol/L (3.5-5.1)
[2023-06-19 11:26] LABS: ALBUMIN 2.8 g/dl (3.4-5.0); BLOOD UREA NITROGEN 12.8 mg/dL (7-18); CALCIUM 8.1 mg/dL (8.5-10.1)
[2023-06-19 11:29] LABS: CREATININE 0.8 mg/dL (0.55-1.3)
[2023-06-19 11:31] LABS: BILIRUBIN,TOTAL 0.2 mg/dL (0.2-1)
[2023-06-19] MEDS: OLANZapine 10 MG TABLET PO SCH (21:07)
[2023-06-19] MEDS: THIAMINE HCL 100 MG TABLET (FP) PO SCH (21:07)
[2023-06-19] MEDS: MELATONIN 5 MG TABLETS PO SCH (21:07)
[2023-06-19] MEDS: hydrOXYzine PAMOATE 25 MG CAPSULE (FP) PO PRN (21:07)
[2023-06-20] MEDS: ARTIFICIAL TEARS OPHTHALMIC DROPS OD SCH ×3 (06:21→21:16)
[2023-06-20] MEDS: PRENATAL VITAMINS W/ FOLIC ACID TABLET (FP) PO SCH (09:59)
[2023-06-20] MEDS: SERTRALINE HCL 50 MG TABLET (FP) PO SCH (09:59)
[2023-06-20 11:03] LABS: EPI CELLS 12 /uL (0-25.1); HYALINE CASTS 1 /uL (0-3.1); PH,URINE 6.5 (5.0-8.0); URINE APPEARANCE CLEAR; URINE BACTERIA 105 /uL (0-1359); URINE BILIRUBIN NEGATIVE (NEGATIVE); URINE COLOR YELLOW; URINE GLUCOSE (UA) NEGATIVE (NEGATIVE); URINE KETONE NEGATIVE (NEGATIVE); URINE LEUK ESTERASE 1+ (NEGATIVE); URINE NITRITE NEGATIVE (NEGATIVE); URINE PROTEIN NEGATIVE (NEGATIVE); URINE RBC 6 /uL (0-23.9); URINE UROBILINOGEN 0.2 mg/dL (0.2-1.0); URINE WBC 52 /uL (0-25.8)
[2023-06-20] MEDS: THIAMINE HCL 100 MG TABLET (FP) PO SCH (21:16)
[2023-06-20] MEDS: OLANZapine 10 MG TABLET PO SCH (21:16)
[2023-06-20] MEDS: MELATONIN 5 MG TABLETS PO SCH (21:16)
[2023-06-21] MEDS: ARTIFICIAL TEARS OPHTHALMIC DROPS OD SCH ×3 (06:37→21:09)
[2023-06-21] MEDS: PRENATAL VITAMINS W/ FOLIC ACID TABLET (FP) PO SCH (09:35)
[2023-06-21] MEDS: SERTRALINE HCL 50 MG TABLET (FP) PO SCH (09:36)
[2023-06-21] MEDS: OLANZapine 10 MG TABLET PO SCH (21:09)
[2023-06-21] MEDS: MELATONIN 5 MG TABLETS PO SCH (21:09)
[2023-06-21] MEDS: THIAMINE HCL 100 MG TABLET (FP) PO SCH (21:09)
[2023-06-21] MEDS: hydrOXYzine PAMOATE 25 MG CAPSULE (FP) PO PRN (21:09)
[2023-06-22] MEDS: ARTIFICIAL TEARS OPHTHALMIC DROPS OD SCH ×4 (06:56→21:22)
[2023-06-22] MEDS: SERTRALINE HCL 50 MG TABLET (FP) PO SCH (09:45)
[2023-06-22] MEDS: PRENATAL VITAMINS W/ FOLIC ACID TABLET (FP) PO SCH (09:45)
[2023-06-22] MEDS: MELATONIN 5 MG TABLETS PO SCH (21:21)
[2023-06-22] MEDS: hydrOXYzine PAMOATE 25 MG CAPSULE (FP) PO PRN (21:21)
[2023-06-22] MEDS: OLANZapine 10 MG TABLET PO SCH (21:21)
[2023-06-22] MEDS: THIAMINE HCL 100 MG TABLET (FP) PO SCH (21:22)
[2023-06-23] MEDS: ARTIFICIAL TEARS OPHTHALMIC DROPS OD SCH ×3 (07:10→21:28)
[2023-06-23] MEDS: PRENATAL VITAMINS W/ FOLIC ACID TABLET (FP) PO SCH (09:36)
[2023-06-23] MEDS: SERTRALINE HCL 50 MG TABLET (FP) PO SCH (09:36)
[2023-06-23] MEDS: THIAMINE HCL 100 MG TABLET (FP) PO SCH (21:27)
[2023-06-23] MEDS: MELATONIN 5 MG TABLETS PO SCH (21:27)
[2023-06-23] MEDS: OLANZapine 10 MG TABLET PO SCH (21:27)
[2023-06-23] MEDS: hydrOXYzine PAMOATE 25 MG CAPSULE (FP) PO PRN (21:28)
[2023-06-24] MEDS: ARTIFICIAL TEARS OPHTHALMIC DROPS OD SCH ×3 (06:13→21:11)
[2023-06-24] MEDS: PRENATAL VITAMINS W/ FOLIC ACID TABLET (FP) PO SCH (09:58)
[2023-06-24] MEDS: SERTRALINE HCL 50 MG TABLET (FP) PO SCH (09:58)
[2023-06-24] MEDS: THIAMINE HCL 100 MG TABLET (FP) PO SCH (21:10)
[2023-06-24] MEDS: hydrOXYzine PAMOATE 25 MG CAPSULE (FP) PO PRN (21:10)
[2023-06-24] MEDS: OLANZapine 10 MG TABLET PO SCH (21:10)
[2023-06-24] MEDS: MELATONIN 5 MG TABLETS PO SCH (21:10)
[2023-06-25] MEDS: ARTIFICIAL TEARS OPHTHALMIC DROPS OD SCH ×3 (06:57→21:08)
[2023-06-25] MEDS: SERTRALINE HCL 50 MG TABLET (FP) PO SCH (09:29)
[2023-06-25] MEDS: PRENATAL VITAMINS W/ FOLIC ACID TABLET (FP) PO SCH (09:29)
[2023-06-25] MEDS: THIAMINE HCL 100 MG TABLET (FP) PO SCH (21:08)
[2023-06-25] MEDS: MELATONIN 5 MG TABLETS PO SCH (21:08)
[2023-06-25] MEDS: OLANZapine 10 MG TABLET PO SCH (21:09)
[2023-06-25] MEDS: hydrOXYzine PAMOATE 25 MG CAPSULE (FP) PO PRN (21:10)
[2023-06-26] MEDS: ARTIFICIAL TEARS OPHTHALMIC DROPS OD SCH ×3 (05:32→21:36)
[2023-06-26] MEDS: PRENATAL VITAMINS W/ FOLIC ACID TABLET (FP) PO SCH (09:23)
[2023-06-26] MEDS: SERTRALINE HCL 50 MG TABLET (FP) PO SCH (09:24)
[2023-06-26] MEDS: hydrOXYzine PAMOATE 25 MG CAPSULE (FP) PO PRN (21:08)
[2023-06-26] MEDS: MELATONIN 5 MG TABLETS PO SCH (21:08)
[2023-06-26] MEDS: THIAMINE HCL 100 MG TABLET (FP) PO SCH (21:08)
[2023-06-26] MEDS: OLANZapine 10 MG TABLET PO SCH (21:08)
[2023-06-27] MEDS: ARTIFICIAL TEARS OPHTHALMIC DROPS OD SCH ×3 (06:52→21:12)
[2023-06-27] MEDS: PRENATAL VITAMINS W/ FOLIC ACID TABLET (FP) PO SCH (09:46)
[2023-06-27] MEDS: SERTRALINE HCL 50 MG TABLET (FP) PO SCH (09:46)
[2023-06-27] MEDS: OLANZapine 10 MG TABLET PO SCH (21:11)
[2023-06-27] MEDS: THIAMINE HCL 100 MG TABLET (FP) PO SCH (21:11)
[2023-06-27] MEDS: MELATONIN 5 MG TABLETS PO SCH (21:12)
[2023-06-27] MEDS: hydrOXYzine PAMOATE 25 MG CAPSULE (FP) PO PRN (21:12)
[2023-06-28] MEDS: ARTIFICIAL TEARS OPHTHALMIC DROPS OD SCH ×3 (06:31→21:07)
[2023-06-28] MEDS: SERTRALINE HCL 50 MG TABLET (FP) PO SCH (09:40)
[2023-06-28] MEDS: PRENATAL VITAMINS W/ FOLIC ACID TABLET (FP) PO SCH (09:40)
[2023-06-28] MEDS: MELATONIN 5 MG TABLETS PO SCH (21:06)
[2023-06-28] MEDS: hydrOXYzine PAMOATE 25 MG CAPSULE (FP) PO PRN (21:06)
[2023-06-28] MEDS: OLANZapine 10 MG TABLET PO SCH (21:06)
[2023-06-28] MEDS: THIAMINE HCL 100 MG TABLET (FP) PO SCH (21:06)
[2023-06-29] MEDS: ARTIFICIAL TEARS OPHTHALMIC DROPS OD SCH ×3 (06:51→21:18)
[2023-06-29] MEDS: PRENATAL VITAMINS W/ FOLIC ACID TABLET (FP) PO SCH (09:16)
[2023-06-29] MEDS: SERTRALINE HCL 50 MG TABLET (FP) PO SCH (09:16)
[2023-06-29] MEDS: MELATONIN 5 MG TABLETS PO SCH (21:09)
[2023-06-29] MEDS: OLANZapine 10 MG TABLET PO SCH (21:09)
[2023-06-29] MEDS: hydrOXYzine PAMOATE 25 MG CAPSULE (FP) PO PRN (21:10)
[2023-06-29] MEDS: THIAMINE HCL 100 MG TABLET (FP) PO SCH (21:10)
[2023-06-30] MEDS: ARTIFICIAL TEARS OPHTHALMIC DROPS OD SCH ×3 (06:37→21:05)
[2023-06-30] MEDS: SERTRALINE HCL 50 MG TABLET (FP) PO SCH (09:18)
[2023-06-30] MEDS: PRENATAL VITAMINS W/ FOLIC ACID TABLET (FP) PO SCH (09:18)
[2023-06-30] MEDS: THIAMINE HCL 100 MG TABLET (FP) PO SCH (21:04)
[2023-06-30] MEDS: OLANZapine 10 MG TABLET PO SCH (21:04)
[2023-06-30] MEDS: MELATONIN 5 MG TABLETS PO SCH (21:04)
[2023-06-30] MEDS: hydrOXYzine PAMOATE 25 MG CAPSULE (FP) PO PRN (21:04)
[2023-07-01] MEDS: ARTIFICIAL TEARS OPHTHALMIC DROPS OD SCH ×3 (06:35→21:13)
[2023-07-01] MEDS: PRENATAL VITAMINS W/ FOLIC ACID TABLET (FP) PO SCH (09:58)
[2023-07-01] MEDS: SERTRALINE HCL 50 MG TABLET (FP) PO SCH (09:58)
[2023-07-01] MEDS: MELATONIN 5 MG TABLETS PO SCH (21:13)
[2023-07-01] MEDS: hydrOXYzine PAMOATE 25 MG CAPSULE (FP) PO PRN (21:13)
[2023-07-01] MEDS: OLANZapine 10 MG TABLET PO SCH (21:13)
[2023-07-01] MEDS: THIAMINE HCL 100 MG TABLET (FP) PO SCH (21:13)
[2023-07-01] MEDS: IBUPROFEN 600 MG TABLET (FP) PO PRN (23:10)
[2023-07-02] MEDS: ARTIFICIAL TEARS OPHTHALMIC DROPS OD SCH ×3 (07:05→21:52)
[2023-07-02] MEDS: PRENATAL VITAMINS W/ FOLIC ACID TABLET (FP) PO SCH (09:56)
[2023-07-02] MEDS: SERTRALINE HCL 50 MG TABLET (FP) PO SCH (09:57)
[2023-07-02] MEDS: IBUPROFEN 600 MG TABLET (FP) PO PRN ×4 (09:57→22:32)
[2023-07-02] MEDS: MELATONIN 5 MG TABLETS PO SCH (21:16)
[2023-07-02] MEDS: THIAMINE HCL 100 MG TABLET (FP) PO SCH (21:16)
[2023-07-02] MEDS: OLANZapine 10 MG TABLET PO SCH (21:16)
[2023-07-02] MEDS: hydrOXYzine PAMOATE 25 MG CAPSULE (FP) PO PRN (21:16)
[2023-07-03] MEDS: ARTIFICIAL TEARS OPHTHALMIC DROPS OD SCH ×3 (06:49→21:19)
[2023-07-03] MEDS: SERTRALINE HCL 50 MG TABLET (FP) PO SCH (09:44)
[2023-07-03] MEDS: PRENATAL VITAMINS W/ FOLIC ACID TABLET (FP) PO SCH (09:44)
[2023-07-03] MEDS ORDERED: BENZOCAINE 20 % GEL TUBE MM PRN (11:49)
[2023-07-03] MEDS: BACLOFEN 10 MG TABLET (FP) PO SCH ×2 (13:40→21:18)
[2023-07-03] MEDS: AMOX TR/POT CLAV 500MG/125MG TABLETS (FP) PO SCH (17:14)
[2023-07-03] MEDS: OLANZapine 10 MG TABLET PO SCH (21:17)
[2023-07-03] MEDS: THIAMINE HCL 100 MG TABLET (FP) PO SCH (21:17)
[2023-07-03] MEDS: MELATONIN 5 MG TABLETS PO SCH (21:18)
[2023-07-04] MEDS: ARTIFICIAL TEARS OPHTHALMIC DROPS OD SCH ×3 (06:51→21:12)
[2023-07-04] MEDS: BACLOFEN 10 MG TABLET (FP) PO SCH ×3 (06:51→21:11)
[2023-07-04] MEDS: AMOX TR/POT CLAV 500MG/125MG TABLETS (FP) PO SCH ×2 (07:21→17:17)
[2023-07-04] MEDS: SERTRALINE HCL 50 MG TABLET (FP) PO SCH (09:47)
[2023-07-04] MEDS: PRENATAL VITAMINS W/ FOLIC ACID TABLET (FP) PO SCH (09:47)
[2023-07-04 10:38] LABS: POTASSIUM 4.6 mmol/L (3.5-5.1)
[2023-07-04 10:52] LABS: ALBUMIN 3.2 g/dl (3.4-5.0); BLOOD UREA NITROGEN 17.2 mg/dL (7-18); CALCIUM 9.4 mg/dL (8.5-10.1)
[2023-07-04 10:55] LABS: CREATININE 0.9 mg/dL (0.55-1.3)
[2023-07-04 10:56] LABS: BILIRUBIN,TOTAL 0.2 mg/dL (0.2-1)
[2023-07-04 10:57] LABS: TOT PROT 6.9 g/dl (6.4-8.2)
[2023-07-04] MEDS: THIAMINE HCL 100 MG TABLET (FP) PO SCH (21:11)
[2023-07-04] MEDS: OLANZapine 10 MG TABLET PO SCH (21:11)
[2023-07-04] MEDS: MELATONIN 5 MG TABLETS PO SCH (21:11)
[2023-07-05] MEDS: BACLOFEN 10 MG TABLET (FP) PO SCH ×3 (06:33→21:21)
[2023-07-05] MEDS: ARTIFICIAL TEARS OPHTHALMIC DROPS OD SCH ×3 (06:33→21:22)
[2023-07-05] MEDS: AMOX TR/POT CLAV 500MG/125MG TABLETS (FP) PO SCH ×2 (07:07→17:35)
[2023-07-05] MEDS: PRENATAL VITAMINS W/ FOLIC ACID TABLET (FP) PO SCH (09:39)
[2023-07-05] MEDS: SERTRALINE HCL 50 MG TABLET (FP) PO SCH (09:39)
[2023-07-05] MEDS: THIAMINE HCL 100 MG TABLET (FP) PO SCH (21:21)
[2023-07-05] MEDS: OLANZapine 10 MG TABLET PO SCH (21:21)
[2023-07-05] MEDS: hydrOXYzine PAMOATE 25 MG CAPSULE (FP) PO PRN (21:22)
[2023-07-05] MEDS: MELATONIN 5 MG TABLETS PO SCH (21:22)
[2023-07-06] MEDS: ARTIFICIAL TEARS OPHTHALMIC DROPS OD SCH ×3 (06:42→21:18)
[2023-07-06] MEDS: BACLOFEN 10 MG TABLET (FP) PO SCH ×3 (06:43→21:18)
[2023-07-06] MEDS: AMOX TR/POT CLAV 500MG/125MG TABLETS (FP) PO SCH ×2 (07:32→17:34)
[2023-07-06] MEDS: PRENATAL VITAMINS W/ FOLIC ACID TABLET (FP) PO SCH (09:47)
[2023-07-06] MEDS: SERTRALINE HCL 50 MG TABLET (FP) PO SCH (09:47)
[2023-07-06] MEDS: hydrOXYzine PAMOATE 25 MG CAPSULE (FP) PO PRN (21:18)
[2023-07-06] MEDS: THIAMINE HCL 100 MG TABLET (FP) PO SCH (21:18)
[2023-07-06] MEDS: MELATONIN 5 MG TABLETS PO SCH (21:18)
[2023-07-06] MEDS: OLANZapine 10 MG TABLET PO SCH (21:18)
[2023-07-07] MEDS: BACLOFEN 10 MG TABLET (FP) PO SCH ×3 (06:43→21:14)
[2023-07-07] MEDS: ARTIFICIAL TEARS OPHTHALMIC DROPS OD SCH ×3 (06:43→21:14)
[2023-07-07] MEDS: AMOX TR/POT CLAV 500MG/125MG TABLETS (FP) PO SCH ×2 (07:03→17:38)
[2023-07-07] MEDS: SERTRALINE HCL 50 MG TABLET (FP) PO SCH (09:58)
[2023-07-07] MEDS: PRENATAL VITAMINS W/ FOLIC ACID TABLET (FP) PO SCH (09:58)
[2023-07-07] MEDS: MELATONIN 5 MG TABLETS PO SCH (21:14)
[2023-07-07] MEDS: THIAMINE HCL 100 MG TABLET (FP) PO SCH (21:14)
[2023-07-07] MEDS: hydrOXYzine PAMOATE 25 MG CAPSULE (FP) PO PRN (21:14)
[2023-07-07] MEDS: OLANZapine 10 MG TABLET PO SCH (21:14)
[2023-07-08 06:45] VITALS: RESP 18
[2023-07-08] MEDS: AMOX TR/POT CLAV 500MG/125MG TABLETS (FP) PO SCH ×2 (07:00→17:37)
[2023-07-08] MEDS: ARTIFICIAL TEARS OPHTHALMIC DROPS OD SCH ×3 (07:00→21:17)
[2023-07-08] MEDS: BACLOFEN 10 MG TABLET (FP) PO SCH ×3 (07:00→21:16)
[2023-07-08] MEDS: SERTRALINE HCL 50 MG TABLET (FP) PO SCH (09:51)
[2023-07-08] MEDS: PRENATAL VITAMINS W/ FOLIC ACID TABLET (FP) PO SCH (09:51)
[2023-07-08] MEDS: OLANZapine 10 MG TABLET PO SCH (21:16)
[2023-07-08] MEDS: MELATONIN 5 MG TABLETS PO SCH (21:16)
[2023-07-08] MEDS: THIAMINE HCL 100 MG TABLET (FP) PO SCH (21:16)
[2023-07-08] MEDS: hydrOXYzine PAMOATE 25 MG CAPSULE (FP) PO PRN (21:16)
[2023-07-09] MEDS: BACLOFEN 10 MG TABLET (FP) PO SCH ×3 (06:46→21:12)
[2023-07-09] MEDS: ARTIFICIAL TEARS OPHTHALMIC DROPS OD SCH ×3 (06:46→21:12)
[2023-07-09] MEDS: AMOX TR/POT CLAV 500MG/125MG TABLETS (FP) PO SCH ×2 (07:00→17:35)
[2023-07-09] MEDS: SERTRALINE HCL 50 MG TABLET (FP) PO SCH (09:50)
[2023-07-09] MEDS: PRENATAL VITAMINS W/ FOLIC ACID TABLET (FP) PO SCH (09:50)
[2023-07-09] MEDS: OLANZapine 10 MG TABLET PO SCH (21:13)
[2023-07-09] MEDS: hydrOXYzine PAMOATE 25 MG CAPSULE (FP) PO PRN (21:13)
[2023-07-09] MEDS: MELATONIN 5 MG TABLETS PO SCH (21:13)
[2023-07-09] MEDS: THIAMINE HCL 100 MG TABLET (FP) PO SCH (21:13)
[2023-07-10] MEDS: BACLOFEN 10 MG TABLET (FP) PO SCH (06:10)
[2023-07-10] MEDS: ARTIFICIAL TEARS OPHTHALMIC DROPS OD SCH (06:10)
[2023-07-10 06:54] VITALS: BP 118/68; PULSE 54; TEMP 97.2
[2023-07-10] MEDS: AMOX TR/POT CLAV 500MG/125MG TABLETS (FP) PO SCH (07:03)
[2023-07-10] MEDS: SERTRALINE HCL 50 MG TABLET (FP) PO SCH (09:33)
[2023-07-10] MEDS: PRENATAL VITAMINS W/ FOLIC ACID TABLET (FP) PO SCH (09:33)
== END 2023-07-10 09:55 | disposition home or self-care (01) | DRG 772 ==
LOC: YASAS 13:00 → Y5N 20:25
PROVIDERS: ADMIT Allergy & Immunology; ATTEND Psychiatry & Neurology Pain Medicine
PROC: HZ42ZZZ Group Counseling for Substance Abuse Treatment, Cognitive-Behavioral (ICD-10-PCS; principal; 2023-06-17)
DX: F10.20 Alcohol dependence, uncomplicated (principal); F14.20 Cocaine dependence, uncomplicated; F17.210 Nicotine dependence, cigarettes, uncomplicated; F25.1 Schizoaffective disorder, depressive type; F19.282 Other psychoactive substance dependence with psychoactive substance-induced sleep disorder; F19.24 Other psychoactive substance dependence with psychoactive substance-induced mood disorder; F32.A Depression, unspecified; K02.9 Dental caries, unspecified; K08.89 Other specified disorders of teeth and supporting structures; H11.31 Conjunctival hemorrhage, right eye; S00.11XD Contusion of right eyelid and periocular area, subsequent encounter; Y04.0XXD Assault by unarmed brawl or fight, subsequent encounter; Z28.311 Partially vaccinated for COVID-19
CPT/HCPCS: 36415; 80053; 80307; 81003; 83036; 85027; 86780; 87635; J0475

== ENCOUNTER 2023-06-18 16:55 | Emergency (ER) | payer OTHER ==
[2023-06-18 17:34] VITALS: BP 144/80; PULSE 59; RESP 20; TEMP 98; BMI 25.7
== END 2023-06-18 19:08 ==
LOC: JER 16:55
DX: H11.31 Conjunctival hemorrhage, right eye (principal); S00.11XA Contusion of right eyelid and periocular area, initial encounter; Y04.0XXA Assault by unarmed brawl or fight, initial encounter
CPT/HCPCS: 70450-TC; 70480-TC; 99284-25

== ENCOUNTER 2023-10-10 02:37 | Inpatient (IN) | payer OTHER ==
[2023-10-10 02:55] VITALS: BMI 34.8
[2023-10-10] MEDS ORDERED: IBUPROFEN 600 MG TABLET (FP) PO PRN (03:16)
[2023-10-10] MEDS ORDERED: DICYCLOMINE HCL 10 MG CAPSULE PO PRN (03:16)
[2023-10-10] MEDS ORDERED: NICOTINE POLACRILEX 2 MG GUM BUC PRN (03:16)
[2023-10-10] MEDS ORDERED: NALOXONE HCL 0.4 MG/ML VIAL IM PRN (03:16)
[2023-10-10] MEDS ORDERED: ACETAMINOPHEN 325 MG TABLET (FP) PO PRN (03:16)
[2023-10-10] MEDS ORDERED: IBUPROFEN 400 MG TABLET (FP) PO PRN (03:16)
[2023-10-10] MEDS ORDERED: ONDANSETRON *ODT* 4 MG TABLET SL PRN (03:16)
[2023-10-10] MEDS ORDERED: guaiFENesin 600 MG TABLET.ER (FP) PO PRN (03:16)
[2023-10-10] MEDS ORDERED: NALOXONE HCL (KLOXXADO) 8 MG SPRAY NS PRN (03:16)
[2023-10-10] MEDS ORDERED: BISMUTH SUBSALICYLATE 524 MG/30 ML PO PRN (03:16)
[2023-10-10] MEDS ORDERED: BENZONATATE 200 MG CAPSULE PO PRN (03:16)
[2023-10-10] MEDS ORDERED: BENZOCAINE/MENTHOL (CHLORASEPTIC ) LOZENGE MM PRN (03:16)
[2023-10-10] MEDS ORDERED: POLYETHYLENE GLYCOL (HEALTHYLAX) 3350 17 GM PACKET PO PRN (03:16)
[2023-10-10] MEDS ORDERED: MAG HYDROX/AL HYDROX/SIMETH 30 ML UNIT-DOSE CUP PO PRN (03:16)
[2023-10-10] MEDS ORDERED: MAGNESIUM HYDROX 2400MG/30ML ORAL SUSPENSION 30 ML CUP PO PRN (03:16)
[2023-10-10] MEDS ORDERED: LOPERAMIDE HCL 2 MG CAPSULE PO PRN (03:16)
[2023-10-10] MEDS ORDERED: chlordiazePOXIDE HCL 25 MG CAPSULE PO PRN (03:18)
[2023-10-10] MEDS: chlordiazePOXIDE HCL 25 MG CAPSULE PO SCH (05:55)
[2023-10-10] MEDS: PRENATAL VITAMINS W/ FOLIC ACID TABLET (FP) PO SCH (10:17)
[2023-10-10] MEDS: NICOTINE 14 MG/24 HOURS TOPICAL PATCH TD SCH (10:19)
[2023-10-10] MEDS: OLANZapine 10 MG TABLET PO SCH (23:07)
[2023-10-10] MEDS: THIAMINE HCL 100 MG TABLET (FP) PO SCH (23:08)
[2023-10-10] MEDS: MELATONIN 5 MG TABLETS PO SCH (23:10)
[2023-10-11] MEDS: chlordiazePOXIDE HCL 25 MG CAPSULE PO SCH (05:43)
[2023-10-11] MEDS: SERTRALINE HCL 50 MG TABLET (FP) PO SCH (10:23)
[2023-10-11] MEDS: hydrOXYzine PAMOATE 25 MG CAPSULE (FP) PO PRN (10:24)
[2023-10-11] MEDS: METHOCARBAMOL 500 MG TABLET PO PRN (10:24)
[2023-10-11 11:38] LABS: HEMATOCRIT 40.1 % (35.4-49); HEMOGLOBIN 13.4 GM/dL (11.7-16.9); MCH 29.8 pg (25.7-33.7); MCHC 33.4 g/dl (32.0-35.9); MEAN CELL VOLUME 89.5 fl (80-96); MEAN PLT VOLUME 7.8 fl (7.5-11.1); PLATELET COUNT 225 10^3/uL (134-434); RBC 4.49 M/mm3 (4.00-5.60); WHITE BLOOD COUNT 5.2 K/mm3 (4.0-10.0)
[2023-10-11 11:42] LABS: POTASSIUM 4.3 mmol/L (3.5-5.1)
[2023-10-11 11:59] LABS: CALCIUM 8.5 mg/dL (8.5-10.1)
[2023-10-11 12:00] LABS: BLOOD UREA NITROGEN 20.5 mg/dL (7-18)
[2023-10-11 12:03] LABS: CREATININE 0.9 mg/dL (0.55-1.3); TOT PROT 6.1 g/dl (6.4-8.2)
[2023-10-11 12:04] LABS: BILIRUBIN,TOTAL 0.2 mg/dL (0.2-1)
[2023-10-11 13:12] VITALS: RESP 18
[2023-10-12] MEDS ORDERED: chlordiazePOXIDE HCL 10 MG CAPSULE PO PRN
[2023-10-12] MEDS: chlordiazePOXIDE HCL 10 MG CAPSULE PO SCH (05:25)
[2023-10-13] MEDS: chlordiazePOXIDE HCL 10 MG CAPSULE PO SCH (05:50)
[2023-10-14] MEDS: chlordiazePOXIDE HCL 10 MG CAPSULE PO ONE (05:38)
[2023-10-14 09:01] VITALS: BP 137/76; PULSE 73; TEMP 97.1
== END 2023-10-14 09:57 | disposition home or self-care (01) | DRG 774 ==
LOC: YASAS 02:37 → Y6N 03:26
PROVIDERS: ADMIT Allergy & Immunology; ATTEND Allergy & Immunology
PROC: HZ2ZZZZ Detoxification Services for Substance Abuse Treatment (ICD-10-PCS; principal; 2023-10-10)
DX: F10.230 Alcohol dependence with withdrawal, uncomplicated (principal); F14.20 Cocaine dependence, uncomplicated; F17.210 Nicotine dependence, cigarettes, uncomplicated; F25.9 Schizoaffective disorder, unspecified; F19.280 Other psychoactive substance dependence with psychoactive substance-induced anxiety disorder; F19.24 Other psychoactive substance dependence with psychoactive substance-induced mood disorder; F19.282 Other psychoactive substance dependence with psychoactive substance-induced sleep disorder; F41.9 Anxiety disorder, unspecified; Z56.0 Unemployment, unspecified; Z59.00 Homelessness unspecified
CPT/HCPCS: 36415; 80053; 80305; 80307; 82947; 83036; 84450; 84520; 85027; 86780; 93005; 93010

== ENCOUNTER 2023-11-12 08:24 | Inpatient (IN) | payer OTHER ==
[2023-11-12 09:19] VITALS: BMI 33.9
[2023-11-12] MEDS ORDERED: guaiFENesin 600 MG TABLET.ER (FP) PO PRN (09:33)
[2023-11-12] MEDS ORDERED: IBUPROFEN 400 MG TABLET (FP) PO PRN (09:33)
[2023-11-12] MEDS ORDERED: ACETAMINOPHEN 325 MG TABLET (FP) PO PRN (09:33)
[2023-11-12] MEDS ORDERED: NALOXONE HCL 0.4 MG/ML VIAL IM PRN (09:33)
[2023-11-12] MEDS ORDERED: ONDANSETRON *ODT* 4 MG TABLET SL PRN (09:33)
[2023-11-12] MEDS ORDERED: IBUPROFEN 600 MG TABLET (FP) PO PRN (09:33)
[2023-11-12] MEDS ORDERED: BENZONATATE 200 MG CAPSULE PO PRN (09:33)
[2023-11-12] MEDS ORDERED: POLYETHYLENE GLYCOL (HEALTHYLAX) 3350 17 GM PACKET PO PRN (09:33)
[2023-11-12] MEDS ORDERED: BENZOCAINE/MENTHOL (CHLORASEPTIC ) LOZENGE MM PRN (09:33)
[2023-11-12] MEDS ORDERED: MAGNESIUM HYDROX 2400MG/30ML ORAL SUSPENSION 30 ML CUP PO PRN (09:33)
[2023-11-12] MEDS ORDERED: MAG HYDROX/AL HYDROX/SIMETH 30 ML UNIT-DOSE CUP PO PRN (09:33)
[2023-11-12] MEDS ORDERED: LOPERAMIDE HCL 2 MG CAPSULE PO PRN (09:33)
[2023-11-12] MEDS ORDERED: BISMUTH SUBSALICYLATE 262 MG/15 ML BTL PO PRN (09:33)
[2023-11-12] MEDS ORDERED: DICYCLOMINE HCL 10 MG CAPSULE PO PRN (09:33)
[2023-11-12] MEDS ORDERED: NALOXONE HCL (KLOXXADO) 8 MG SPRAY NS PRN (09:33)
[2023-11-12] MEDS ORDERED: NICOTINE 7 MG/24 HOURS TOPICAL PATCH TD ONE (10:25)
[2023-11-12] MEDS ORDERED: PRENATAL VITAMINS W/ FOLIC ACID TABLET (FP) PO ONE (10:25)
[2023-11-12] MEDS: NICOTINE 7 MG/24 HOURS TOPICAL PATCH TD SCH (10:32)
[2023-11-12] MEDS: PRENATAL VITAMINS W/ FOLIC ACID TABLET (FP) PO SCH (10:32)
[2023-11-12] MEDS: chlordiazePOXIDE HCL 25 MG CAPSULE PO SCH (10:56)
[2023-11-12] MEDS: BACLOFEN 10 MG TABLET (FP) PO SCH (13:16)
[2023-11-12] MEDS: THIAMINE 100 MG TABLET PO SCH (22:11)
[2023-11-12] MEDS: MELATONIN 5 MG TABLETS PO SCH (22:12)
[2023-11-13] MEDS: SERTRALINE HCL 50 MG TABLET (FP) PO SCH (10:12)
[2023-11-13 12:02] LABS: HEMATOCRIT 39.1 % (35.4-49); HEMOGLOBIN 13.3 GM/dL (11.7-16.9); MCH 30.5 pg (25.7-33.7); MEAN CELL VOLUME 89.6 fl (80-96); MEAN PLT VOLUME 8.6 fl (7.5-11.1); PLATELET COUNT 253 10^3/uL (134-434); RBC 4.36 M/mm3 (4.00-5.60); RDW 14.9 % (11.9-15.9)
[2023-11-13 12:05] LABS: CALCIUM 8.5 mg/dL (8.5-10.1)
[2023-11-13 12:06] LABS: BLOOD UREA NITROGEN 12.9 mg/dL (7-18)
[2023-11-13 12:09] LABS: CREATININE 0.8 mg/dL (0.55-1.3)
[2023-11-13 12:10] LABS: BILIRUBIN,TOTAL 0.6 mg/dL (0.2-1); TOT PROT 6.4 g/dl (6.4-8.2)
[2023-11-13] MEDS: chlordiazePOXIDE HCL 25 MG CAPSULE PO PRN (22:29)
[2023-11-13] MEDS: OLANZapine 10 MG TABLET PO SCH (22:29)
[2023-11-14] MEDS: chlordiazePOXIDE HCL 25 MG CAPSULE PO SCH (05:05)
[2023-11-14] MEDS: hydrOXYzine PAMOATE 25 MG CAPSULE (FP) PO PRN (10:08)
[2023-11-14] MEDS: METHOCARBAMOL 500 MG TABLET PO PRN (10:08)
[2023-11-14] MEDS: LACTULOSE 20 GM/30 ML UDC (FOR ORAL USE ONLY) PO SCH (13:20)
[2023-11-15] MEDS ORDERED: chlordiazePOXIDE HCL 10 MG CAPSULE PO PRN
[2023-11-15] MEDS: chlordiazePOXIDE HCL 10 MG CAPSULE PO SCH (05:21)
[2023-11-16] MEDS: chlordiazePOXIDE HCL 10 MG CAPSULE PO SCH (05:27)
[2023-11-17] MEDS: chlordiazePOXIDE HCL 10 MG CAPSULE PO ONE (05:14)
[2023-11-18 08:47] VITALS: BP 140/87; PULSE 65; RESP 16; TEMP 97.1
== END 2023-11-18 10:10 | disposition other institution (70) | DRG 774 ==
LOC: YASAS 08:24 → Y6N 09:41
PROVIDERS: ADMIT Allergy & Immunology; ATTEND Surgery
PROC: HZ2ZZZZ Detoxification Services for Substance Abuse Treatment (ICD-10-PCS; principal; 2023-11-12)
DX: F10.230 Alcohol dependence with withdrawal, uncomplicated (principal); F14.20 Cocaine dependence, uncomplicated; F12.220 Cannabis dependence with intoxication, uncomplicated; F17.210 Nicotine dependence, cigarettes, uncomplicated; F25.9 Schizoaffective disorder, unspecified; F19.282 Other psychoactive substance dependence with psychoactive substance-induced sleep disorder; R79.89 Other specified abnormal findings of blood chemistry; Z56.0 Unemployment, unspecified; Z59.00 Homelessness unspecified; Z28.311 Partially vaccinated for COVID-19
CPT/HCPCS: 36415; 80053; 80305; 80307; 82140; 83036; 85027; 86780; 93005; 93010; J0475

== ENCOUNTER 2023-12-04 10:08 | Inpatient (IN) | payer OTHER ==
[2023-12-04 11:01] VITALS: BMI 33.0
[2023-12-04] MEDS ORDERED: BENZONATATE 200 MG CAPSULE PO PRN (11:38)
[2023-12-04] MEDS ORDERED: BISMUTH SUBSALICYLATE 524 MG/30 ML PO PRN (11:38)
[2023-12-04] MEDS ORDERED: NALOXONE HCL 0.4 MG/ML VIAL IM PRN (11:38)
[2023-12-04] MEDS ORDERED: NALOXONE HCL (KLOXXADO) 8 MG SPRAY NS PRN (11:38)
[2023-12-04] MEDS ORDERED: IBUPROFEN 400 MG TABLET (FP) PO PRN (11:38)
[2023-12-04] MEDS ORDERED: NICOTINE POLACRILEX 4 MG GUM BUC PRN (11:38)
[2023-12-04] MEDS ORDERED: LOPERAMIDE HCL 2 MG CAPSULE PO PRN (11:38)
[2023-12-04] MEDS ORDERED: MAG HYDROX/AL HYDROX/SIMETH 30 ML UNIT-DOSE CUP PO PRN (11:38)
[2023-12-04] MEDS ORDERED: BENZOCAINE/MENTHOL (CHLORASEPTIC ) LOZENGE MM PRN (11:38)
[2023-12-04] MEDS ORDERED: IBUPROFEN 600 MG TABLET (FP) PO PRN (11:38)
[2023-12-04] MEDS ORDERED: ACETAMINOPHEN 325 MG TABLET (FP) PO PRN (11:38)
[2023-12-04] MEDS ORDERED: POLYETHYLENE GLYCOL (HEALTHYLAX) 3350 17 GM PACKET PO PRN (11:38)
[2023-12-04] MEDS ORDERED: guaiFENesin 600 MG TABLET.ER (FP) PO PRN (11:38)
[2023-12-04] MEDS ORDERED: MAGNESIUM HYDROX 2400MG/30ML ORAL SUSPENSION 30 ML CUP PO PRN (11:38)
[2023-12-04] MEDS ORDERED: DICYCLOMINE HCL 10 MG CAPSULE PO PRN (11:38)
[2023-12-04] MEDS ORDERED: ONDANSETRON *ODT* 4 MG TABLET ONE (11:51)
[2023-12-04] MEDS ORDERED: PRENATAL VITAMINS W/ FOLIC ACID TABLET (FP) PO ONE (11:53)
[2023-12-04] MEDS ORDERED: LORazepam 2 MG TABLET ONE (11:53)
[2023-12-04] MEDS: LORazepam 2 MG TABLET PO SCH (11:54)
[2023-12-04] MEDS: PRENATAL VITAMINS W/ FOLIC ACID TABLET (FP) PO SCH (11:54)
[2023-12-04] MEDS: ONDANSETRON *ODT* 4 MG TABLET SL PRN (11:54)
[2023-12-04] MEDS: ACAMPROSATE CALCIUM 333 MG TABLET.DR PO SCH (14:50)
[2023-12-04] MEDS: MELATONIN 5 MG TABLETS PO SCH (22:27)
[2023-12-04] MEDS: THIAMINE 100 MG TABLET PO SCH (22:27)
[2023-12-04] MEDS: METHOCARBAMOL 500 MG TABLET PO PRN (22:27)
[2023-12-05 11:51] LABS: HEMATOCRIT 40.5 % (35.4-49); HEMOGLOBIN 13.4 GM/dL (11.7-16.9); MCH 30.1 pg (25.7-33.7); MCHC 33.1 g/dl (32.0-35.9); MEAN CELL VOLUME 91.1 fl (80-96); MEAN PLT VOLUME 8.6 fl (7.5-11.1); PLATELET COUNT 241 10^3/uL (134-434); RBC 4.45 M/mm3 (4.00-5.60); RDW 15.6 % (11.9-15.9)
[2023-12-05 12:03] LABS: POTASSIUM 4.4 mmol/L (3.5-5.1)
[2023-12-05 12:04] LABS: CALCIUM 9.2 mg/dL (8.5-10.1)
[2023-12-05 12:05] LABS: ALBUMIN 3.3 g/dl (3.4-5.0)
[2023-12-05 12:15] LABS: BILIRUBIN,TOTAL 0.5 mg/dL (0.2-1)
[2023-12-05] MEDS: OLANZapine 10 MG TABLET PO SCH (23:00)
[2023-12-06] MEDS: LORazepam 1 MG TABLET PO SCH (06:00)
[2023-12-06] MEDS: SERTRALINE HCL 50 MG TABLET (FP) PO SCH (10:20)
[2023-12-06] MEDS: LORazepam 1 MG TABLET PO PRN (15:19)
[2023-12-07] MEDS ORDERED: LORazepam 0.5 MG TABLET PO PRN
[2023-12-07] MEDS: LORazepam 0.5 MG TABLET PO SCH (05:47)
[2023-12-07] MEDS: hydrOXYzine PAMOATE 25 MG CAPSULE (FP) PO PRN (21:57)
[2023-12-08] MEDS: LORazepam 0.5 MG TABLET PO ONE (05:50)
[2023-12-08 13:41] VITALS: RESP 18
[2023-12-09 09:19] VITALS: BP 104/67; PULSE 66; TEMP 97.8
== END 2023-12-09 11:05 | disposition other institution (70) | DRG 774 ==
LOC: YASAS 10:08 → Y3N 11:52
PROVIDERS: ADMIT Allergy & Immunology; ATTEND Surgery
PROC: HZ2ZZZZ Detoxification Services for Substance Abuse Treatment (ICD-10-PCS; principal; 2023-12-04)
DX: F10.230 Alcohol dependence with withdrawal, uncomplicated (principal); F14.20 Cocaine dependence, uncomplicated; F12.20 Cannabis dependence, uncomplicated; F17.210 Nicotine dependence, cigarettes, uncomplicated; F25.9 Schizoaffective disorder, unspecified; F32.A Depression, unspecified; F41.9 Anxiety disorder, unspecified; R79.89 Other specified abnormal findings of blood chemistry
CPT/HCPCS: 36415; 80053; 80305; 80307; 82140; 85027; 86780; 93005; 93010; Q0162

== ENCOUNTER 2024-06-03 14:38 | Inpatient (IN) | payer OTHER ==
[2024-06-03 15:25] VITALS: BMI 41.5
[2024-06-03] MEDS ORDERED: MAGNESIUM HYDROX 2400MG/30ML ORAL SUSPENSION 30 ML CUP PO PRN (18:17)
[2024-06-03] MEDS ORDERED: LOPERAMIDE HCL 2 MG CAPSULE PO PRN (18:17)
[2024-06-03] MEDS ORDERED: IBUPROFEN 600 MG TABLET (FP) PO PRN (18:17)
[2024-06-03] MEDS ORDERED: ACETAMINOPHEN 325 MG TABLET (FP) PO PRN (18:17)
[2024-06-03] MEDS ORDERED: POLYETHYLENE GLYCOL (HEALTHYLAX) 3350 17 GM PACKET PO PRN (18:17)
[2024-06-03] MEDS ORDERED: NICOTINE POLACRILEX 2 MG LOZENGE BC PRN (18:17)
[2024-06-03] MEDS ORDERED: BENZOCAINE/MENTHOL (CHLORASEPTIC ) LOZENGE MM PRN (18:17)
[2024-06-03] MEDS ORDERED: NICOTINE POLACRILEX 2 MG GUM BUC PRN (18:17)
[2024-06-03] MEDS ORDERED: guaiFENesin 600 MG TABLET.ER (FP) PO PRN (18:17)
[2024-06-03] MEDS ORDERED: MAG HYDROX/AL HYDROX/SIMETH 30 ML UNIT-DOSE CUP PO PRN (18:17)
[2024-06-03] MEDS ORDERED: BENZONATATE 200 MG CAPSULE PO PRN (18:17)
[2024-06-03] MEDS: MELATONIN 5 MG TABLETS PO SCH (21:19)
[2024-06-03] MEDS: THIAMINE 100 MG TABLET PO SCH (21:19)
[2024-06-04] MEDS: PRENATAL VITAMINS W/ FOLIC ACID TABLET (FP) PO SCH (09:51)
[2024-06-04] MEDS: IBUPROFEN 400 MG TABLET (FP) PO PRN (12:09)
[2024-06-04 15:00] LABS: HEMATOCRIT 40.7 % (35.4-49); HEMOGLOBIN 13.6 GM/dL (11.7-16.9); MCH 29.8 pg (25.7-33.7); MCHC 33.3 g/dl (32.0-35.9); MEAN CELL VOLUME 89.4 fl (80-96); MEAN PLT VOLUME 8.4 fl (7.5-11.1); PLATELET COUNT 188 10^3/uL (134-434); RBC 4.55 M/mm3 (4.00-5.60); RDW 14.5 % (11.9-15.9); WHITE BLOOD COUNT 6.7 K/mm3 (4.0-10.0)
[2024-06-04 15:24] LABS: CHLORIDE 107 mmol/L (98-107); POTASSIUM 3.9 mmol/L (3.5-5.1); SODIUM 139 mmol/L (136-145)
[2024-06-04 15:29] LABS: ALBUMIN 3.4 g/dl (3.4-5.0); ANION GAP 5 mmol/L (4-13); BLOOD UREA NITROGEN 14.6 mg/dL (7-18); CALCIUM 9.2 mg/dL (8.5-10.1); CO2 27 mmol/L (21-32)
[2024-06-04 15:30] LABS: GLUCOSE,RANDOM 129 mg/dL (74-106)
[2024-06-04 15:32] LABS: CREATININE 0.8 mg/dL (0.55-1.3); SGOT/AST 95 U/L (15-37); SGPT/ALT 46 U/L (13-61)
[2024-06-04 15:34] LABS: BILIRUBIN,TOTAL 0.7 mg/dL (0.2-1); TOT PROT 6.7 g/dl (6.4-8.2)
[2024-06-04 15:35] LABS: ALK PHOS 61 U/L (45-117)
[2024-06-04] MEDS: hydrOXYzine PAMOATE 25 MG CAPSULE (FP) PO PRN (16:30)
[2024-06-04] MEDS: hydrOXYzine PAMOATE 50 MG CAPSULE (FP) PO PRN (16:58)
[2024-06-04] MEDS: SERTRALINE HCL 50 MG TABLET (FP) PO SCH (16:58)
[2024-06-04] MEDS: metFORMIN HCL 500 MG TABLET (FP) PO SCH (17:33)
[2024-06-04] MEDS: OLANZapine 10 MG TABLET PO SCH (21:09)
[2024-06-04] MEDS: BENZTROPINE MESYLATE 1 MG TABLET PO SCH (21:09)
[2024-06-06 00:11] LABS: PH,URINE 6.5 (5.0-8.0); URINE APPEARANCE CLEAR; URINE BILIRUBIN NEGATIVE (NEGATIVE); URINE COLOR YELLOW; URINE GLUCOSE (UA) NEGATIVE (NEGATIVE); URINE KETONE TRACE (NEGATIVE); URINE LEUK ESTERASE NEGATIVE (NEGATIVE); URINE NITRITE NEGATIVE (NEGATIVE); URINE PROTEIN NEGATIVE (NEGATIVE)
[2024-06-17] MEDS: NALOXONE (NYS OPIOID OVERDOSE PROGRAM) 4 MG/0.1 ML SPRAY NS SCH (17:23)
[2024-06-18 06:35] VITALS: BP 145/80; PULSE 75; RESP 16; TEMP 97.9
[2024-06-18] MEDS ORDERED: NALOXONE (NYS OPIOID OVERDOSE PROGRAM) 4 MG/0.1 ML SPRAY NS PRN (07:00)
== END 2024-06-18 07:30 | disposition home or self-care (01) | DRG 772 ==
LOC: YASAS 14:38 → Y3E 18:39
PROVIDERS: ADMIT Psychiatry & Neurology Pain Medicine; ATTEND Psychiatry & Neurology Pain Medicine
PROC: HZ42ZZZ Group Counseling for Substance Abuse Treatment, Cognitive-Behavioral (ICD-10-PCS; principal; 2024-06-03)
DX: F10.20 Alcohol dependence, uncomplicated (principal); F14.20 Cocaine dependence, uncomplicated; F12.20 Cannabis dependence, uncomplicated; F17.210 Nicotine dependence, cigarettes, uncomplicated; F25.9 Schizoaffective disorder, unspecified; F19.282 Other psychoactive substance dependence with psychoactive substance-induced sleep disorder; F19.280 Other psychoactive substance dependence with psychoactive substance-induced anxiety disorder; F19.24 Other psychoactive substance dependence with psychoactive substance-induced mood disorder; F32.A Depression, unspecified
CPT/HCPCS: 36415; 80053; 80305; 80307; 81003; 85027; 86780; 87811